=== PATIENT | female | born 1985 | race Caucasian/White ===

== ENCOUNTER → 2017-12-03 11:53 | Outpatient (CLI) | payer OTHER, SELFPAY ==
--- NOTE | 2017-12-03 11:56 | DI.RAD.S_ITS ---
PROCEDURE: XR ABDOMEN MIN 2V INDICATIONS: Abdominal pain LLQ and constipation/diarrhea TECHNIQUE: 2 views of the abdomen were acquired. COMPARISON: None. FINDINGS: Surgical changes and devices: None. Bowel: No pneumoperitoneum. The bowel gas pattern is normal except for mild colonic obstipation.. Soft tissues: No masses; visualized solid organ contours appear normal in size. No suspicious abdominal calcifications. Bones: No suspicious bony abnormalities. Note is made of mild convex rightward rotatory scoliosis. 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 Clonic obstipation. No intestinal obstruction or perforation is found. Dictated by: Andrew Andrade M.D. on 12/03/2017 at 13:24 Approved by: Andrew Andrade M.D. on 12/03/2017 at 13:25
[2017-12-03 12:59] LABS: Add Manual Diff / Slide Review NO; Eosinophils Percent Auto 1.7 % (2-4); Hematocrit 40.6 % (36-46); Hemoglobin 13.6 g/dL (12.0-16.0); Lymphocytes Percent Auto 30.9 % (25-40); Mean Corpuscular HGB Conc 33.4 % (30-36); Mean Corpuscular Hemoglobin 29.9 PG (26-34); Mean Corpuscular Volume 89.5 fL (80-100); Monocytes Percent Auto 7.3 % (3-14); Neutrophils Absolute Auto 3000 /uL (3000-5900); Neutrophils Percent Auto 59.1 % (50-75); Platelet Count 250 X10^3/uL (150-400); Red Blood Cell Count 4.53 X10^6/uL (4.0-5.2); Red Cell Distribution Width 13.8 % (11.6-14.8); White Blood Cell Count 5.1 X10^3/uL (4.5-11.0)
[2017-12-03 13:20] LABS: Bacteria Urine None Seen; RBC Urine None Seen (0-5/HPF); WBC Urine None Seen (0-5/HPF)
[2017-12-03 13:57] LABS: Appearance Urine UA CLOUDY; Bilirubin Urine UA NEGATIVE (NEGATIVE); Color Urine UA YELLOW; Glucose Urine UA NEGATIVE (Normal); Ketones Urine UA NEGATIVE (NEGATIVE); Leukocyte Esterase Urine UA NEGATIVE (NEGATIVE); Nitrite Urine UA NEGATIVE (Negative); Occult Blood Urine UA 1+ (Negative); Protein Urine UA NEGATIVE (Negative); Specific Gravity Urine UA 1.025 (1.000-1.035); Urobilinogen Urine UA 0.2 E.U./dL (0.2); pH Urine UA 5.5 (4.5-8.0)
[2017-12-03 14:04] LABS: Amorphous Sediment Urine 4+; Culture Indicated Urine Cult Not Indicated
== END ==
PROVIDERS: PCP Physician Assistant; Visit Provider Physician Assistant
DX: R11.10 Vomiting, unspecified (principal); R10.9 Unspecified abdominal pain; R10.32 Left lower quadrant pain
CPT/HCPCS: 36415; 74019; 81001; 85025

== ENCOUNTER → 2020-03-23 07:45 | Outpatient (CLI) | payer BC, SELFPAY ==
--- NOTE | 2020-03-23 07:50 | DI.US.S_ITS ---
PROCEDURE: US SOFT TISSUE HEAD AND NECK INDICATIONS: MASS RIGHT JAW TECHNIQUE: Real-time scanning was performed of the neck region of interest, with image documentation. COMPARISON: None. FINDINGS: There are multiple bilateral morphologically normal appearing lymph nodes, largest on the right measuring up to 8 mm and 7 mm on the left in maximal short axis. IMPRESSION: Multiple morphologically normal appearing bilateral lymph nodes, largest measuring up to 8 mm on the right. Recommend continued followup ultrasound as detailed below. Clinical correlation and management. Dictated by: Mauro PAYNE Interpreted: Zeenat Kincaid MD on 03/23/2020 at 9:02 Approved by: Zeenat Kincaid M.D. on 03/23/2020 at 10:54
== END ==
PROVIDERS: PCP Internal Medicine; Referring Provider Internal Medicine; Visit Provider Internal Medicine
DX: R22.0 Localized swelling, mass and lump, head (principal)
CPT/HCPCS: 76536

== ENCOUNTER → 2020-04-07 09:10 | Outpatient (CLI) | payer BC, SELFPAY ==
--- NOTE | 2020-04-07 09:49 | DI.CT.S_ITS ---
PROCEDURE: CT SOFT TISSUE NECK W CON INDICATIONS: Localized swelling, mass and lump, neck TECHNIQUE: After the administration of intravenous contrast, 3.0 mm axial sections acquired from the sella to the aortic arch. Additional oblique axial 3.0 mm sections acquired through the pharynx. 3 mm thick coronal and sagittal reformats were generated. For radiation dose reduction, the following was used: automated exposure control. COMPARISON: None. FINDINGS: Image quality: Excellent. Lymph nodes: No enlarged lymph nodes seen throughout the neck. Vessels: Visualized vasculature appears patent. Neck spaces: The oropharynx, nasopharynx, and pharynx demonstrate no mucosal lesions. The vocal cords, false vocal cords, pyriform sinuses, epiglottis, vallecula, and tongue base all appear normal. Extramucosal spaces appear unremarkable. Glands: The parotid and submandibular glands appear normal. Thyroid gland appears normal . Miscellaneous: Visualized brain and orbits appear normal. Lung apices appear clear. Superficial soft tissues appear normal. Bones: No suspicious bony lesions. Visualized sinuses and mastoids appear unremarkable. IMPRESSION: No area of soft tissue edema is identified, the parapharyngeal soft tissues show no sign of inflammation. No salivary gland enlargement, or adenopathy is seen. Source of current symptoms is not found. Dictated by: Andrew Andrade M.D. on 04/07/2020 at 11:54 Approved by: Andrew Andrade M.D. on 04/07/2020 at 11:55
== END ==
PROVIDERS: PCP Internal Medicine; Referring Provider Internal Medicine; Visit Provider Internal Medicine
DX: R22.1 Localized swelling, mass and lump, neck (principal)
CPT/HCPCS: 70491; Q9967

== ENCOUNTER 2021-10-02 19:33 | Emergency (ER) | payer BC, SELFPAY ==
[2021-10-02 19:42] VITALS: BP 131/65; PULSE 77; RESP 19; TEMP 36.7; O2SAT 99; BMI 21.1
[2021-10-02 20:10] LABS: Add Manual Diff / Slide Review NO; Basophils Absolute Auto 100 /uL (0-100); Basophils Percent Auto 1.1 % (0-2); Eosinophils Absolute Auto 200 /uL (0-450); Eosinophils Percent Auto 2.3 % (2-4); Hematocrit 35.8 % (36-46); Hemoglobin 12.3 g/dL (12.0-16.0); Lymphocytes Absolute Auto 2200 /uL (1100-4500); Lymphocytes Percent Auto 29.5 % (25-40); Mean Corpuscular HGB Conc 34.3 % (30-36); Mean Corpuscular Hemoglobin 30.1 PG (26-34); Mean Corpuscular Volume 87.7 fL (80-100); Monocytes Absolute Auto 400 /uL (0-900); Monocytes Percent Auto 6.1 % (3-14); Neutrophils Absolute Auto 4500 /uL (1500-7000); Platelet Count 249 X10^3/uL (150-400); Red Blood Cell Count 4.08 X10^6/uL (4.0-5.2); Red Cell Distribution Width 13.6 % (11.6-14.8); White Blood Cell Count 7.3 X10^3/uL (4.5-11.0)
[2021-10-02 20:16] LABS: Alanine Aminotransferase 14 IU/L (<35); Albumin 4.1 g/dL (3.5-5.0); Albumin Globulin Ratio 1.2 (1.0-2.8); Alkaline Phosphatase 36 U/L (38-126); Aspartate Aminotransferase 25 IU/L (14-36); Bilirubin Total 0.4 mg/dL (0.2-1.3); Blood Urea Nitrogen 17 mg/dL (7-17); Carbon Dioxide 28 mmol/L (22-32); Chloride 103 mmol/L (98-107); Estimated Glomerular Filt Rate > 60 mL/min (>60); Globulin 3.3 g/dL (1.7-4.1); Glucose 86 mg/dL (70-100); HEMOLYSIS < 15 (0-50); Lipase 157 U/L (23-300); Potassium 3.5 mmol/L (3.4-5.1); Sodium 136 mmol/L (137-145); Total Protein 7.4 g/dL (6.3-8.2)
--- NOTE | 2021-10-02 22:03 | ED_ITS ---
HPI - Abdominal Pain General Chief Complaint: Abdominal Pain Stated Complaint: Stomach ulcer complications Time Seen by Provider: 10/02/21 21:16 Source: patient Mode of arrival: Ambulatory History of Present Illness HPI narrative: 36-year-old female former smoker presents with her significant other and a chief complaint of worsening epigastric pain. She states that she is been battling this for many months and her primary care provider has been helping her treat what is thought to be a likely ulcer or even H pylori infection. She had been on Protonix daily and had recently done the triple antibiotic therapy for possible H pylori though test was negative. Her antibiotics and yesterday and she stopped taking Protonix as well and today presents with severe burning epigastric pain without radiation. Typically her burning was improved somewhat after eating but over the past 24 hours it has been significantly worse with eating. She is had no fever or chills. She is had nausea. She denies any chest pain, shortness of breath or cough. She denies any constipation or diarrhea. Had no recent change in her diet. Related Data Home Medications Medication Instructions Recorded Confirmed Digestive Enzymes See Rx Instructions .Route .COMPLEX 12/03/17 11/06/18 Probiotic See Rx Instructions .Route .COMPLEX 12/03/17 11/06/18 Previous Rx's Medication Instructions Recorded diclofenac sodium 1 % topical gel 2 gram topical QID PRN pain #100 05/06/18 grams meclizine 25 mg tablet 25 mg PO BID-TID PRN dizziness #30 11/06/18 tabs ondansetron 4 mg disintegrating 4 mg PO TID-QID PRN nausea and 10/02/21 tablet vomiting #10 tabs pantoprazole 40 mg tablet,delayed 40 mg PO DAILY #30 tabs 10/02/21 release (Protonix) Allergies Allergy/AdvReac Type Severity Reaction Status Date / Time metoclopramide Allergy Mild BAD Verified 10/02/21 19:46 [METOCLOPRAMIDE] REACTIONS metronidazole [From FLAGYL] Allergy Mild BAD Verified 10/02/21 19:46 REACTIONS Review of Systems Review of Systems Narrative: GENERAL: Denies chills, fatigue, malaise, fever, sweats. HEENT: Denies sinus pain, ear pain, sore throat, difficulty swallowing, dizziness. RESPIRATORY: Denies dyspnea, cough, wheezing, hemoptysis, sputum. CARDIOVASCULAR: Denies chest pain, palpitations, orthopnea, edema, GASTROINTESTINAL: See HPI : Denies dysuria, frequency, incontinence, hematuria, urinary retention. MUSCULOSKELETAL: denies weakness, joint pain, or bony pain SKIN: Denies rash, skin lesions, or other NEUROLOGIC: Denies weakness, headache, numbness, change in speech, confusion, seizures, incoordination. PSYCHIATRIC: No concerning psychosocial issues. 12 point review of systems is negative except for those stated above Patient History Social History Smoking Status: Former smoker Tobacco: How many years used: 10 second hand exposure: No alcohol intake: current (rarely.) substance use type: does not use Smoking Status: Former smoker tobacco type: vaping alcohol intake frequency: 0-2 drinks per day Substance Use Type: does not use Exam Narrative Exam Narrative: GENERAL: [36] year old patient appears stated age. Well-developed patient, in mild distress. HEAD: Atraumatic. Normocephalic. EYES: Pupils equal round and reactive. Extraocular motions intact. No scleral icterus. No injection or drainage. ENT: Nose without bleeding, purulent drainage. Throat without erythema, tonsillar hypertrophy or exudate. Airway patent. NECK: Trachea midline. Non tender CARDIOVASCULAR: Regular rate and rhythm without murmurs, gallops, or rubs. RESPIRATORY: Clear to auscultation. Breath sounds equal bilaterally. No wheezes, rales, or rhonchi. GASTROINTESTINAL: Abdomen soft, epigastric tenderness to palpation, nondistended. EXTREMITIES: No edema or joint tenderness. BACK: Nontender without deformity or crepitance. No flank tenderness. NEURO: AOx3. SKIN: No rash or erythema of visible areas Initial Vital Signs Initial Vital Signs: Vital Signs Temperature 98.1 F 10/02/21 19:42 Pulse Rate 77 10/02/21 19:42 Respiratory Rate 19 10/02/21 19:42 Blood Pressure 131/65 10/02/21 19:42 Pulse Oximetry 99 10/02/21 19:42 Oxygen Delivery Method 10/02/21 19:42 Course Orders Ordered: Discontinued Medications Hydromorphone HCl (Hydromorphone 0.5 Mg Inj) 0.5 mg IV NOW ONE Stop: 10/02/21 22:12 Last Admin: 10/02/21 22:29 Dose: 0.5 mg Documented By: JONNATHAN Sodium Chloride (Normal Saline 0.9%) 1,000 mls @ 1,000 mls/hr IV BOLUS ONE Stop: 10/02/21 23:10 Last Infusion: 10/02/21 23:46 Dose: 0 mls/hr Documented By: Admin: 10/02/21 22:28 Dose: 1,000 mls/hr Documented By: JONNATHAN Ondansetron HCl (Ondansetron 4 Mg/2 Ml Inj) 4 mg IV NOW ONE Stop: 10/02/21 22:12 Last Admin: 10/02/21 22:29 Dose: 4 mg Documented By: JONNATHAN Ondansetron HCl (Ondansetron 4 Mg Odt Prepack) 1 bottle MISC SEEINSTR ONE Stop: 10/02/21 23:27 Last Admin: 10/02/21 23:42 Dose: 1 bottle Documented By: JONNATHAN Pantoprazole Sodium (Pantoprazole 40 Mg Vial) 40 mg IV NOW ONE Stop: 10/02/21 22:12 Last Admin: 10/02/21 22:29 Dose: 40 mg Documented By: JONNATHAN Vital Signs Vital signs: Vital Signs - 8 hr 10/02/21 19:42 Temperature 98.1 F Pulse Rate 77 Respiratory Rate 19 Blood Pressure 131/65 Pulse Oximetry 99 Oxygen Delivery Method Room Air MDM - Abdominal Pain Lab Data Result diagrams: 10/02/21 19:50 10/02/21 19:50 Labs: Lab Results 10/02/21 10/02/21 Range/Units 19:50 19:50 WBC 7.3 (4.5-11.0) X10^3/uL RBC 4.08 (4.0-5.2) X10^6/uL Hgb 12.3 (12.0-16.0) g/dL Hct 35.8 L (36-46) % MCV 87.7 (80-100) fL MCH 30.1 (26-34) PG MCHC 34.3 (30-36) % RDW 13.6 (11.6-14.8) % Plt Count 249 (150-400) X10^3/uL Neut % (Auto) 61.0 (50-75) % Lymph % (Auto) 29.5 (25-40) % [place]orne % (Auto) 6.1 (3-14) % Eos % (Auto) 2.3 (2-4) % Baso % (Auto) 1.1 (0-2) % Neut # (Auto) 4500 (5897-3817) /uL Lymph # (Auto) 2200 (4641-8017) /uL [place]orne # (Auto) 400 (0-900) /uL Eos # (Auto) 200 (0-450) /uL Baso # (Auto) 100 (0-100) /uL Sodium 136 L (137-145) mmol/L Potassium 3.5 (3.4-5.1) mmol/L Chloride 103 (98-107) mmol/L Carbon Dioxide 28 (22-32) mmol/L BUN 17 (7-17) mg/dL Creatinine 0.74 (0.52-1.04) mg/dL Estimated GFR > 60 (>60) mL/min BUN/Creatinine Ratio 23.0 H (6-22) Glucose 86 (70-100) mg/dL Calcium 9.0 (8.4-10.2) mg/dL Total Bilirubin 0.4 (0.2-1.3) mg/dL AST 25 (14-36) IU/L ALT 14 (<35) IU/L Alkaline Phosphatase 36 L (38-126) U/L Total Protein 7.4 (6.3-8.2) g/dL Albumin 4.1 (3.5-5.0) g/dL Globulin 3.3 (1.7-4.1) g/dL Albumin/Globulin Ratio 1.2 (1.0-2.8) Lipase 157 (23-300) U/L Imaging Data CT scan - abdomen/pelvis: Radiologist's Impression: Close Abdomen/Pelvis CT (Signed) Andrew Andrade - 10/02/21 Launch?[address] [address] [address] Scan Report Signed Patient: Alondra Mayes MR#: [id number] : 1985 Acct:[id number] Age/Sex: 36 / F Date of Service: 10/02/21 Loc: ED Accession Number: [id number] ?? Procedure: CT abdomen pelvis w con Ordering Provider: Miguelangel Goins D.O. PROCEDURE:? CT ABDOMEN PELVIS W CON ? INDICATIONS:? severe abdominal pain ? TECHNIQUE:? After the administration of intravenous contrast, axial sections acquired from the lung bases to the pubic symphysis.? Coronal and sagittal reformats were performed.? For radiation dose reduction, the following was used:? automated exposure control, adjustment of mA and/or kV according to patient size.? ? COMPARISON:? None. ? FINDINGS:? Image quality:? Excellent.? ? Lung bases:? Unremarkable. Heart:? No significant findings. ? ABDOMEN: Liver:? Unremarkable.? ? Gallbladder:? Previously resected? ? Biliary ducts:? Unremarkable.? ? Pancreas:? Unremarkable.? ? Spleen:? Unremarkable.? ? Adrenal Glands:? Unremarkable.? ? Kidneys and Ureters:? Unremarkable.? ? ? Stomach and Bowel:? Stomach, small bowel loops, and colon are unremarkable.? Peritoneum:? No abnormal intraperitoneal fluid.? No free air.? ? Ventral Wall: ? No hernias.? Abdominal Nodes:? No retroperitoneal or mesenteric adenopathy by size criteria.? Vessels:? Aorta and inferior vena cava are normal in size.? ? PELVIS: Pelvic Organs:? Unremarkable.? ? Bladder:? Unremarkable.? ? Pelvic Nodes: No enlarged lymph nodes.? Miscellaneous: No hernias are seen. ? ? ? Bones:? Unremarkable.? IMPRESSION:? A source of abdominal pain is not identified.? There is no sign of intestinal obstruction or perforation.? No free fluid within the peritoneal space is seen. ? ? Dictated by: Andrew Andrade M.D. on 10/02/2021 at 23:03 ? ? Approved by: Andrew Andrade M.D. on 10/02/2021 at 23:04 ? MDM Narrative Medical decision making narrative: Multiple etiologies for patient's symptoms considered include, but not limited to: [Gallbladder disease versus pancreatitis versus bowel obstruction versus ulcer versus gastritis versus other Patient's symptoms improved over duration of stay with above-stated therapies. History, physical exam, labs, imaging, and response to therapies have been reassuring. Findings and discharge diagnosis discussed with patient/family followed by verb alization of understanding Return precautions discussed with patient/family whom verbalize understanding. Pain has been well controlled and patient is tolerating oral hydration. Discharge Plan Departure Patient Disposition: Home Clinical Impression: Epigastric abdominal pain Instructions: DI for Epigastric Pain Activity Restrictions/Additional Instructions: *You have been diagnosed with [acute on chronic epigastric abdominal pain] * As we discussed your history and physical exam as well as labs and imaging are very reassuring. There is no evidence of any severe diagnoses that would requi re a specific or immediate intervention. *What to do: *Please continue to take your regular medications as directed. [x ] New medication prescriptions sent to your pharmacy: [[facility] in [place]] *Please follow up with your primary care provider in 2-3 days, call for an appointment. Let them know you were seen in the Emergency Department and that we ask that you be seen in follow up. We will electronically transmit a record of today's note if your PCP is in our system * as we discussed it seems most reasonable to pursue referral to either General surgery or Gastroenterology as endoscopy seems to be the next reasonable step to obtaining an official diagnosis *Please consider a clear liquid diet for the next 24-48 hours and then slowly advance to regular as tolerated. Also, try to avoid alcohol, nicotine, caffeine, spicy, acidic or fatty foods as this may worsen your symptoms *Return to Emergency Department if you should have any new, worsening or concern ing symptoms, such as [fever greater than 101 F, shaking chills, worsening pain, persistent vomiting or other bothersome symptoms] Prescriptions: New pantoprazole [Protonix] 40 mg tablet,delayed release (DR/EC) 40 mg PO DAILY Qty: 30 0RF ondansetron 4 mg tablet,disintegrating 4 mg PO TID-QID PRN (Reason: nausea and vomiting) Qty: 10 0RF No Action Probiotic See Rx Instructions .ROUTE .COMPLEX Label Comments: 1 CAP PO TWICE A WEEK Rx Instructions: 1 CAP PO TWICE A WEEK Digestive Enzymes See Rx Instructions .ROUTE .COMPLEX Label Comments: 1 CAP PO PRN Rx Instructions: 1 CAP PO PRN diclofenac sodium 1 % gel 2 gram TOP QID PRN (Reason: pain) Qty: 100 3RF Rx Instructions: apply to hand at thumb up to 4 times a day meclizine 25 mg tablet 25 mg PO BID-TID PRN (Reason: dizziness) Qty: 30 0RF Referrals: Alexandra Byrd MD [Primary Care Provider] - Jericho Delacruz MD [Physician] - Visit Report Forms: Patient Portal/API
--- NOTE | 2021-10-02 22:11 | DI.CT.S_ITS ---
PROCEDURE: CT ABDOMEN PELVIS W CON INDICATIONS: severe abdominal pain TECHNIQUE: After the administration of intravenous contrast, axial sections acquired from the lung bases to the pubic symphysis. Coronal and sagittal reformats were performed. For radiation dose reduction, the following was used: automated exposure control, adjustment of mA and/or kV according to patient size. COMPARISON: None. FINDINGS: Image quality: Excellent. Lung bases: Unremarkable. Heart: No significant findings. ABDOMEN: Liver: Unremarkable. Gallbladder: Previously resected Biliary ducts: Unremarkable. Pancreas: Unremarkable. Spleen: Unremarkable. Adrenal Glands: Unremarkable. Kidneys and Ureters: Unremarkable. Stomach and Bowel: Stomach, small bowel loops, and colon are unremarkable. Peritoneum: No abnormal intraperitoneal fluid. No free air. Ventral Wall: No hernias. Abdominal Nodes: No retroperitoneal or mesenteric adenopathy by size criteria. Vessels: Aorta and inferior vena cava are normal in size. PELVIS: Pelvic Organs: Unremarkable. Bladder: Unremarkable. Pelvic Nodes: No enlarged lymph nodes. Miscellaneous: No hernias are seen. Bones: Unremarkable. IMPRESSION: A source of abdominal pain is not identified. There is no sign of intestinal obstruction or perforation. No free fluid within the peritoneal space is seen. Dictated by: Andrew Andrade M.D. on 10/02/2021 at 23:03 Approved by: Andrew Andrade M.D. on 10/02/2021 at 23:04
[2021-10-02] MEDS: SODIUM CHLORIDE 0.9% 1,000 ML 1000 ML IV (22:28)
[2021-10-02] MEDS: PANTOPRAZOLE 40 MG VIAL IV (22:29)
[2021-10-02] MEDS: ONDANSETRON 4 MG/2 ML INJ IV (22:29)
[2021-10-02] MEDS: HYDROMORPHONE 0.5 MG INJ IV (22:29)
[2021-10-02 23:35] VITALS: BP 114/70; PULSE 90; RESP 18; O2SAT 99
[2021-10-02] MEDS: ONDANSETRON 4 MG ODT PREPACK 1 BOTTLE MISC (23:42)
== END 2021-10-03 00:35 | disposition home or self-care (01) ==
PROVIDERS: Emergency Provider Emergency Medicine; PCP Internal Medicine
DX: R10.13 Epigastric pain (principal)
CPT/HCPCS: 74177; 80053; 83690; 85025; 96374; 96375; 99284; C9113; J1170; J2405; Q9967

== ENCOUNTER → 2021-10-24 11:59 | Outpatient (CLI) | payer OTHER, SELFPAY ==
[2021-10-24 14:41] LABS: COVID19 -Nasal RAPID Negative (Negative)
== END ==
PROVIDERS: Visit Provider Surgery
DX: Z01.812 Encounter for preprocedural laboratory examination (principal); Z20.822 Contact with and (suspected) exposure to COVID-19
CPT/HCPCS: 87635; C9803

== ENCOUNTER 2021-10-25 13:25 | Day surgery (SDC) | payer OTHER, SELFPAY ==
[2021-10-25] VITALS (8 sets, daily range): BP systolic 109–120; BP diastolic 72–85; PULSE 64–79; RESP 11–18; TEMP 36.6–37.4; O2SAT 98–100; BMI 21.7
--- NOTE | 2021-10-25 | PATH_ITS ---
[facility] Accession Number: [id number] . 01 Material submitted: . PART A: stomach - STOMACH BIOPSY PART B: esophagus, E-G Junction - GE JUNCTION BIOPSY . 01 Clinical history: . EGD PEPTIC ULCER, SITE UNSPECIFIED . 01 Diagnosis: A. Stomach, Biopsy: Antral mucosa with mild chronic gastritis. No evidence of Helicobacter on H/E stain. Negative for intestinal metaplasia. Negative for dysplasia and malignancy. . B. Gastroesophageal Junction, Biopsy: Squamous epithelium with no diagnostic abnormality. Intraepithelial eosinophils are not increased. Negative for dysplasia and malignancy. MRV 10/27/2021 0927 Local . 01 Electronically signed: . Kasia Whitman MD, Pathologist NPI- [id number] . 01 Gross description: . Part A: STOMACH BIOPSY: Received in formalin are 2 fragment(s) of berkowitz, soft tissue measuring 0.5 x 0.3 x 0.1 cm to 0.2 x 0.2 x 0.1 cm submitted entirely in 1 cassette(s) Part B: GE JUNCTION BIOPSY: Received in formalin is 1 fragment(s) of berkowitz, soft tissue measuring 0.3 x 0.2 x 0.1 cm submitted entirely in 1 cassette(s) /CPE 10/26/2021 0908 Local . 01 Pathologist provided ICD-10: K27.9 . 01 CPT . 290069, 423132 Performed at: 01 [facility] [address] [place] [address], [place], [place] [id number] MD Anton Irwin MD Phone: [phone]
[2021-10-25] MEDS: LACTATED RINGERS 1,000 ML 200 ML IV (13:50)
--- NOTE | 2021-10-25 15:09 | PM.PREOP ---
Pre-operative Note Interval Note History & Physical reviewed/Exam performed by Physician: Yes Changes to H&P: No
[2021-10-25] MEDS: LIDOCAINE 4% SOLN 50 ML 20 ML TOP (15:20)
--- NOTE | 2021-10-25 15:20 | PM.OP.EGD ---
Operative Date/Time/Diagnoses Date of procedure: 10/25/21 Time of procedure: 15:20 Pre-op diagnosis: Epigastric pain Procedure & Clinicians Study performed: Esophagoduodenoscopy Same procedure as scheduled: Yes Indications: Chronic epigastric pain Surgeon: Augustine Lance Procedure Notes Procedure in detail: Patient placed in left lateral decubitus position. Time out was performed. Procedural sedation was administered with Versed and Fentanyl. A bite block was placed. the scope was inserted into the mouth and advanced through the esophagus and into the stomach. The stomach was notable for mild diffuse gastritis. No distinct ulcer, no active bleeding. The pylorus was intubated and the duodenum was normal to the 2nd portion. The scope was retroflexed within the stomach and there was a small hiatal hernia. The scope was withdrawn into the esophagus the Z line was seen at 35 cm from the incisions. There was mild esophagitis and a biopsy was performed of the GE junction with forceps.. Stomach was desufflated and scope removed. Patient tolerated procedure well. Specimen(s): other (Gastric, GE junction) Complications: none Impression: Gastritis Post-procedure Plan for aftercare: Continue Protonix 40 mg daily will notify with biopsy results Disposition: same day surgery
[2021-10-25] MEDS: fentaNYL 100 MCG/2 ML INJ 150 MCG IV (15:30)
[2021-10-25] MEDS: MIDAZOLAM 5 MG/5 ML VIAL 8 MG IV (15:30)
[2021-10-25] MEDS: FAMOTIDINE 20 MG/2 ML VIAL IV (16:02)
--- NOTE | 2021-10-25 16:25 | SUR.PHASEII ---
Tea provided, patient swallowing without difficulty. Call light within reach. Joseph updated.
--- NOTE | 2021-10-25 19:00 | SUR.PHASEII ---
d/c instuctions discussed, by marifer Bermudez ready to go, left in stable condition.
== END 2021-10-25 17:00 | disposition home or self-care (01) ==
PROVIDERS: Referring Provider Surgery; Visit Provider Surgery
PROC: 0DJ08ZZ Inspection of Upper Intestinal Tract, Via Natural or Artificial Opening Endoscopic (ICD-10-PCS; CPT 43235; principal; 2021-10-25 15:15)
DX: K20.90 Esophagitis, unspecified without bleeding (principal); K44.9 Diaphragmatic hernia without obstruction or gangrene; K29.50 Unspecified chronic gastritis without bleeding
CPT/HCPCS: 43239; J2250; J3010

== ENCOUNTER → 2021-11-14 13:14 | Outpatient (CLI) | payer OTHER, SELFPAY ==
[2021-11-14 15:05] LABS: Free T3, Triiodothyronine Free 3.41 pg/mL (2.77-5.27)
[2021-11-14 15:19] LABS: Thyroid Stimulating Hormone 0.818 uIU/mL (0.47-4.68)
== END ==
PROVIDERS: Referring Provider Naturopath; Visit Provider Naturopath
DX: R53.83 Other fatigue (principal); R63.4 Abnormal weight loss
CPT/HCPCS: 36415; 84443; 84481

== ENCOUNTER 2022-10-27 08:26 | Emergency (ER) | payer OTHER, SELFPAY ==
--- NOTE | 2022-10-27 08:30 | DI.RAD.S_ITS ---
PROCEDURE: XR CHEST 2V INDICATIONS: chest pain TECHNIQUE: 2 views of the chest were acquired. COMPARISON: [facility], , CHEST 2 VIEW, 01/18/2015, 12:13. FINDINGS: Surgical changes and devices: None. Lungs and pleura: Lungs are clear. No pleural effusions or pneumothorax. Mediastinum: Mediastinal contours are normal. Heart size is normal. Bones and chest wall: No suspicious bony abnormalities. Soft tissues appear unremarkable. IMPRESSION: No acute cardiopulmonary abnormality. Dictated by: Po Kaur M.D. on 10/27/2022 at 8:49 Approved by: Po Kaur M.D. on 10/27/2022 at 8:51
[2022-10-27 08:33] VITALS: BP 116/69; PULSE 77; RESP 12; TEMP 36.9; O2SAT 100; BMI 22.0
--- NOTE | 2022-10-27 08:48 | ED.CHESTPAIN ---
HPI - Chest Pain General Chief Complaint: Chest Pain Stated Complaint: SOB, Chest Pain T-3 Time Seen by Provider: 10/27/22 08:29 Source: patient Mode of arrival: Ambulatory Limitations: no limitations History of Present Illness HPI narrative: 37-year-old female former smoker without significant medical history presents with a chief complaint of shortness of breath and chest pain over the course of the week. She was initially seen and evaluated at the walk-in clinic and after discussion and history and physical exam she was sent here. She states that over the previous couple of days she had an intermittent chest pressure that was often described as sharp that seemed to be without obvious provocation or palliation. It would come and go at will over the course of the day, no radiation associated. No ongoing runny nose, fever or chills. No recent travel, trauma or injury. No lower extremity pain, swelling or redness. No history of blood clot or cancer, no use of control. Last evening it became much more intense and was notably worse when she laid flat. This was associated with some shortness of breath, she is admittedly much better now and has no shortness of breath. She denies exertional symptoms, exercise intolerance or other cardiac equivalent such as dizziness, weakness or lightheadedness, no unexplained diaphoresis. Related Data Home Medications Medication Instructions Recorded Confirmed Digestive Enzymes See Rx Instructions .Route .COMPLEX 12/03/17 10/27/22 Probiotic See Rx Instructions .Route .COMPLEX 12/03/17 10/27/22 Previous Rx's Medication Instructions Recorded meclizine 25 mg tablet 25 mg PO BID-TID PRN dizziness #30 11/06/18 tabs pantoprazole 40 mg tablet,delayed 40 mg PO DAILY #60 tabs 10/25/21 release (Protonix) Allergies Allergy/AdvReac Type Severity Reaction Status Date / Time metoclopramide Allergy Mild BAD Verified 10/27/22 07:42 [METOCLOPRAMIDE] REACTIONS metronidazole [From FLAGYL] Allergy Mild BAD Verified 10/27/22 07:42 REACTIONS ondansetron AdvReac Mild Nausea Verified 10/27/22 07:42 Review of Systems Review of Systems Narrative: GENERAL: Denies chills, fatigue, malaise, fever, sweats. HEENT: Denies sinus pain, ear pain, sore throat, difficulty swallowing, dizziness. RESPIRATORY: See HPI CARDIOVASCULAR: see HPI GASTROINTESTINAL: Denies nausea, vomiting, abdominal pain, diarrhea, constipation, melena. : Denies dysuria, frequency, incontinence, hematuria, urinary retention. MUSCULOSKELETAL: denies weakness, joint pain, or bony pain SKIN: Denies rash, skin lesions, or other NEUROLOGIC: Denies weakness, headache, numbness, change in speech, confusion, seizures, incoordination. PSYCHIATRIC: No concerning psychosocial issues. 12 point review of systems is negative except for those stated above Patient History Social History household members: spouse Smoking Status: Former smoker Tobacco: How many years used: 10 second hand exposure: No alcohol intake: current substance use type: does not use Smoking Status: Former smoker tobacco type: vaping alcohol intake frequency: a few times a month Substance Use Type: does not use Exam Narrative Exam Narrative: GENERAL: [37] year old patient appears stated age. Well-developed patient, in mild distress. HEAD: Atraumatic. Normocephalic. EYES: Pupils equal round and reactive. Extraocular motions intact. No scleral icterus. No injection or drainage. ENT: Nose without bleeding, purulent drainage. Throat without erythema, tonsillar hypertrophy or exudate. Airway patent. NECK: Trachea midline. Non tender CARDIOVASCULAR: Regular rate and rhythm without murmurs, gallops, or rubs. RESPIRATORY: Clear to auscultation. Breath sounds equal bilaterally. No wheezes, rales, or rhonchi. GASTROINTESTINAL: Abdomen soft, non-tender, nondistended. EXTREMITIES: No edema or joint tenderness. BACK: Nontender without deformity or crepitance. No flank tenderness. NEURO: AOx3. SKIN: No rash or erythema of visible areas Initial Vital Signs Initial Vital Signs: Vital Signs Temperature 98.5 F 10/27/22 08:33 Pulse Rate 77 10/27/22 08:33 Respiratory Rate 12 10/27/22 08:33 Blood Pressure 116/69 10/27/22 08:33 Pulse Oximetry 100 10/27/22 08:33 Oxygen Delivery Method Room Air 10/27/22 08:33 Scores HEART Score Heart Score history: Slightly Suspicious Heart Score EKG: Normal Heart Score Age: < 45 years old Heart Score risk factors: No known risk factors Heart Score troponin: < or = to normal limit Heart Score Total: 0 Course Orders Ordered: ED Orders 10/27/22 08:30 Chest [XR chest 2V] Stat 10/27/22 08:52 C-Reactive Protein Quant Stat Complete Blood Count AUTO DIFF Stat Comprehensive Metabolic Panel Stat D Dimer Stat Erythrocyte Sedimentation Rate Stat Lipase Stat NT-proBNP (BNP-Adult 18+) Stat Troponin & CK Cardiac Panel Stat Vital Signs Vital signs: Vital Signs - 8 hr 10/27/22 08:33 10/27/22 08:58 10/27/22 08:59 Temperature 98.5 F Pulse Rate 77 87 Respiratory Rate 12 Blood Pressure 116/69 149/84 H Pulse Oximetry 100 100 Oxygen Delivery Method Room Air 10/27/22 08:59 10/27/22 09:00 10/27/22 09:00 Temperature Pulse Rate 82 78 Respiratory Rate Blood Pressure 138/82 Pulse Oximetry 100 100 Oxygen Delivery Method 10/27/22 09:30 10/27/22 09:30 10/27/22 10:08 Temperature Pulse Rate 66 70 Respiratory Rate 19 14 Blood Pressure 118/70 108/69 Pulse Oximetry 100 100 Oxygen Delivery Method Room Air MDM - Chest Pain Lab Data 10/27/22 08:52 10/27/22 08:52 Labs: Lab Results 10/27/22 10/27/22 10/27/22 Range/Units 08:52 08:52 08:52 WBC 4.6 (4.5-11.0) X10^3/uL RBC 4.12 (4.0-5.2) X10^6/uL Hgb 12.4 (12.0-16.0) g/dL Hct 36.5 (36-46) % MCV 88.6 (80-100) fL MCH 30.2 (26-34) PG MCHC 34.1 (30-36) % RDW 13.0 (11.6-14.8) % Plt Count 257 (150-400) X10^3/uL Neut % (Auto) 60.2 (50-75) % Lymph % (Auto) 31.0 (25-40) % [place] % (Auto) 4.9 (3-14) % Eos % (Auto) 2.8 (2-4) % Baso % (Auto) 1.1 (0-2) % Neut # (Auto) 2700 (2500-4295) /uL Lymph # (Auto) 1400 (4201-5122) /uL [place] # (Auto) 200 (0-900) /uL Eos # (Auto) 100 (0-450) /uL Baso # (Auto) 100 (0-100) /uL ESR 8 (0-20) MM/HR D-Dimer 319 (<500) ng/ml Sodium 135 L (137-145) mmol/L Potassium 3.7 (3.4-5.1) mmol/L Chloride 104 (98-107) mmol/L Carbon Dioxide 25 (22-32) mmol/L BUN 18 H (7-17) mg/dL Creatinine 0.69 (0.52-1.04) mg/dL Estimated GFR > 60 (>60) mL/min BUN/Creatinine Ratio 26.1 H (6-22) Glucose 101 H (70-100) mg/dL Calcium 9.1 (8.4-10.2) mg/dL Total Bilirubin 0.3 (0.2-1.3) mg/dL AST 22 (14-36) IU/L ALT 16 (<35) IU/L Alkaline Phosphatase 32 L (38-126) U/L Total Creatine Kinase 69 (30-135) U/L Troponin I < 0.012 (0.01-0.034) ng/mL C-Reactive Protein < 0.5 (<1.0) mg/dL NT-Pro-B Natriuret Pep < 20 (<125) pg/mL Total Protein 7.4 (6.3-8.2) g/dL Albumin 4.2 (3.5-5.0) g/dL Globulin 3.2 (1.7-4.1) g/dL Albumin/Globulin Ratio 1.3 (1.0-2.8) Lipase 134 (23-300) U/L MDM Narrative Medical decision making narrative: CC: 37-year-old female with chest pain and shortness of breath Complicating co-morbidities: Former smoker Data collected from: Patient Medical records reviewed: Prior notes reviewed in our EMR Differential considered, but not limited to: Respiratory infection such as viral versus pneumonia versus cardiac ischemia versus pulmonary embolism versus pericarditis versus other Exam documented above, pertinent findings include: Lab Test results independently reviewed as above. Pertinent findings: Independently reviewed EKG as above Imaging studies independently reviewed: CXR without acute findings Scores Used: HEART Discussion:37-year-old female with chest pain off and on for the past few days with low risk features, cardiac ischemia and other diagnoses considered as noted above. Cardiac disease thought unlikely given lack of risk factors, lack of classic findings, low heart score, nonischemic EKG and negative troponin. No exertional symptoms, no exercise intolerance. Pulmonary embolism considered but Dimer below cutoff. myocarditis and pericarditis considered, troponin negative, inflammatory markers. Disposition: see below, along with detailed discharge instructions that have been reviewed with patient as well as indications for ED re-evaluation and additional outpatient follow up Discharge Plan Departure Patient Disposition: Home Clinical Impression: Atypical chest pain Instructions: DI for Atypical Chest Pain Activity Restrictions/Additional Instructions: *You have been diagnosed with [ atypical chest pain. As we discussed your history and physical exam as well as labs, EKG and imaging are reassuring and there is no evidence of heart attack, blood clot, significant pericarditis or other diagnosis that requires a specific intervention] *What to do: *Please continue to take your regular medications as directed. [ ] New medication prescriptions sent to your pharmacy: [ ] [ ] New medication written as a paper prescription [ ] No new medications given *Please follow up with your primary care provider in 2-3 days, call for an appointment. Let them know you were seen in the Emergency Department and that we ask that you be seen in follow up. We will electronically transmit a record of today's note if your PCP is in our system *If you do not have a primary care provider please contact the [facility] Resource line at [phone]. They will ask some questions about your medical history and help get you set up with a doctor in the community. *Return to Emergency Department if you should have any new, worsening or concerning symptoms, such as [fever greater than 101 F, shaking chills, worsening pain, persistent vomiting or other bothersome symptoms] Prescriptions: No Action Probiotic See Rx Instructions .ROUTE .COMPLEX Patient Comments: 1 CAP PO TWICE A WEEK Rx Instructions: 1 CAP PO TWICE A WEEK Digestive Enzymes See Rx Instructions .ROUTE .COMPLEX Patient Comments: 1 CAP PO PRN Rx Instructions: 1 CAP PO PRN meclizine 25 mg tablet 25 mg PO BID-TID PRN (Reason: dizziness) Qty: 30 0RF pantoprazole [Protonix] 40 mg tablet,delayed release (DR/EC) 40 mg PO DAILY Qty: 60 0RF Referrals: Tiffany Cordero ND [Primary Care Provider] - Stand Alone Forms: Patient Portal/API
[2022-10-27 08:58] VITALS: PULSE 87; O2SAT 100
[2022-10-27 08:59] VITALS: BP 149/84; PULSE 82; O2SAT 100
[2022-10-27 09:00] VITALS: BP 138/82; PULSE 78; O2SAT 100
[2022-10-27 09:06] LABS: Add Manual Diff / Slide Review NO; Basophils Absolute Auto 100 /uL (0-100); Basophils Percent Auto 1.1 % (0-2); Eosinophils Absolute Auto 100 /uL (0-450); Eosinophils Percent Auto 2.8 % (2-4); Hematocrit 36.5 % (36-46); Hemoglobin 12.4 g/dL (12.0-16.0); Lymphocytes Absolute Auto 1400 /uL (1100-4500); Mean Corpuscular HGB Conc 34.1 % (30-36); Mean Corpuscular Hemoglobin 30.2 PG (26-34); Mean Corpuscular Volume 88.6 fL (80-100); Monocytes Absolute Auto 200 /uL (0-900); Monocytes Percent Auto 4.9 % (3-14); Neutrophils Absolute Auto 2700 /uL (1500-7000); Neutrophils Percent Auto 60.2 % (50-75); Platelet Count 257 X10^3/uL (150-400); Red Blood Cell Count 4.12 X10^6/uL (4.0-5.2); White Blood Cell Count 4.6 X10^3/uL (4.5-11.0)
[2022-10-27 09:19] LABS: D Dimer 319 ng/ml (<500)
[2022-10-27 09:20] LABS: Alanine Aminotransferase 16 IU/L (<35); Albumin 4.2 g/dL (3.5-5.0); Albumin Globulin Ratio 1.3 (1.0-2.8); Alkaline Phosphatase 32 U/L (38-126); Aspartate Aminotransferase 22 IU/L (14-36); BUN Creatinine Ratio 26.1 (6-22); Bilirubin Total 0.3 mg/dL (0.2-1.3); Blood Urea Nitrogen 18 mg/dL (7-17); C-Reactive Protein Quant < 0.5 mg/dL (<1.0); Calcium 9.1 mg/dL (8.4-10.2); Carbon Dioxide 25 mmol/L (22-32); Chloride 104 mmol/L (98-107); Creatine Kinase 69 U/L (30-135); Estimated Glomerular Filt Rate > 60 mL/min (>60); Globulin 3.2 g/dL (1.7-4.1); Glucose 101 mg/dL (70-100); HEMOLYSIS < 15 (0-50); Lipase 134 U/L (23-300); Potassium 3.7 mmol/L (3.4-5.1); Sodium 135 mmol/L (137-145); Total Protein 7.4 g/dL (6.3-8.2)
[2022-10-27 09:27] LABS: Erythrocyte Sedimentation Rate 8 MM/HR (0-20)
[2022-10-27 09:29] LABS: NT-proBNP (BNP-Adult 18+) < 20 pg/mL (<125); Troponin I < 0.012 ng/mL (0.01-0.034)
[2022-10-27 09:30] VITALS: BP 118/70; PULSE 66; RESP 19; O2SAT 100
--- NOTE | 2022-10-27 10:00 | PC.NURSE ---
patient in room resting. She was asked if she needed anything and she said no. Her call light was in reach, rails were up.
[2022-10-27 10:08] VITALS: BP 108/69; PULSE 70; RESP 14; O2SAT 100
== END 2022-10-27 10:11 | disposition home or self-care (01) ==
PROVIDERS: Emergency Provider Emergency Medicine; PCP Naturopath
DX: R07.89 Other chest pain (principal)
CPT/HCPCS: 36415; 71046; 80053; 82550; 83690; 83880; 84484; 85025; 85379; 85651; 86140; 93005; 99284

== ENCOUNTER → 2023-01-28 13:02 | Outpatient (CLI) | payer OTHER, SELFPAY ==
--- NOTE | 2023-01-28 13:08 | DI.RAD.S_ITS ---
PROCEDURE: XR CHEST 2V INDICATIONS: Chest discomfort TECHNIQUE: 2 views of the chest were acquired. COMPARISON: [facility], , XR CHEST 2V, 10/27/2022, 8:40. [facility], , CHEST 2 VIEW, 01/18/2015, 12:13. FINDINGS: Surgical changes and devices: None. Lungs and pleura: No consolidation. No pleural effusions. Mediastinum: Normal heart size Bones and chest wall: Unremarkable IMPRESSION: No acute radiographic abnormality. Dictated by: William Quinn M.D. on 01/28/2023 at 13:24 Approved by: William Quinn M.D. on 01/28/2023 at 13:25
== END ==
PROVIDERS: PCP Naturopath; Referring Provider Nurse Practitioner Family; Visit Provider Nurse Practitioner Family
DX: R07.89 Other chest pain (principal)
CPT/HCPCS: 71046

== ENCOUNTER → 2023-03-08 15:34 | Outpatient (CLI) | payer OTHER, SELFPAY ==
[2023-03-08 18:06] LABS: Vitamin B12 479 pg/mL (239-931)
== END ==
PROVIDERS: PCP Family Medicine; Referring Provider Family Medicine; Visit Provider Family Medicine
DX: H93.13 Tinnitus, bilateral (principal); R53.83 Other fatigue; R10.13 Epigastric pain
CPT/HCPCS: 36415; 82607

== ENCOUNTER → 2023-03-13 09:05 | Outpatient (CLI) | payer OTHER, SELFPAY ==
--- NOTE | 2023-03-13 09:07 | DI.MG.S_ITS ---
BILATERAL DIGITAL SCREENING MAMMOGRAM 3D/2D WITH CAD: 03/13/2023 CLINICAL: Routine screening. Family history of breast cancer. Comparison is made to exams dated: 06/30/2021 mammogram and 08/29/2018 mammogram - [facility]. Both breasts are heterogeneously dense, which may obscure small masses (category c / 51-75% glandular tissue). Current study was also evaluated with a Computer Aided Detection (CAD) system. No significant masses, calcifications, or other findings are seen in either breast. There has been no significant interval change. IMPRESSION: NEGATIVE There is no mammographic evidence of malignancy. A 1 year screening mammogram is recommended. Based on Tyrer-Cuzick model (a risk assessment model), the patient's lifetime risk is 21.8% and her 10 year risk is 2.2%. If a patient has an elevated risk, a more comprehensive evaluation should be considered and/or a referral to a genetic counselor. The [place] [employer], [place] [employer], and NCCN Guidelines advise the consideration of Breast MRI as an adjunct to screening mammography in patients whose Lifetime risk to develop breast cancer is 20% or higher. This exam was interpreted at Station ID: [id number]. NOTE: For mammograms, a report in lay terms will be sent to the patient. Approximately 15% of breast malignancies will not be visualized mammographically. In the management of a palpable breast mass, a negative mammogram must not discourage biopsy of a clinically suspicious lesion. Electronically Signed By: Po ingram/carina:03/13/2023 09:54:20 letter sent: Normal Exam ACR BI-RADS Category 1: Negative 3341F
== END ==
LOC: MAMMO 09:06
PROVIDERS: PCP Family Medicine; Referring Provider Family Medicine; Visit Provider Family Medicine
DX: Z12.31 Encounter for screening mammogram for malignant neoplasm of breast (principal); Z80.3 Family history of malignant neoplasm of breast; R92.333 Mammographic heterogeneous density, bilateral breasts
CPT/HCPCS: 77063; 77067

== ENCOUNTER 2023-06-01 08:26 | Emergency (ER) | payer OTHER, SELFPAY ==
[2023-06-01 08:31] VITALS: BP 133/87; PULSE 78; O2SAT 100
[2023-06-01 08:34] VITALS: BP 132/72; PULSE 77; RESP 18; TEMP 36.7; O2SAT 98; BMI 21.7
--- NOTE | 2023-06-01 08:43 | PC.NURSE ---
X-ray tech arrived to patient room and patient is refusing to have chest x-ray be completed. This RN attempted to ask patient again. This RN informed provider of patient refusal. No new orders given at this time.
--- NOTE | 2023-06-01 08:51 | ED_ITS ---
HPI - Chest Pain General Chief Complaint: Chest Pain Stated Complaint: upper GI pain/chest pain Time Seen by Provider: 06/01/23 08:33 Source: patient Mode of arrival: Ambulatory Limitations: no limitations History of Present Illness HPI narrative: Patient is a 37-year-old female. Has had a longstanding history of issues with palpitations. She was scheduled to get a Holter monitor at the beginning of next week. She has also had issues with reflux disease in the past. She has had her gallbladder removed. Over the past 7 days she has described epigastric discomfort that radiates up into the back of her chest. Does seem to change/get worse with eating. Unsure as to whether not this is exactly associated with the palpitations. Currently she has not having palpitations but is having the epigastric pain. No change in bowel habits. She denies chest pain or shortness of breath Related Data Home Medications Medication Instructions Recorded Confirmed Digestive Enzymes See Rx Instructions .Route .COMPLEX 12/03/17 03/07/23 Probiotic See Rx Instructions .Route .COMPLEX 12/03/17 03/07/23 Previous Rx's Medication Instructions Recorded meclizine 25 mg tablet 25 mg PO BID-TID PRN dizziness #30 11/06/18 tabs sucralfate 100 mg/mL oral 10 ml PO QACHS #420 mL 06/01/23 suspension (Carafate) Allergies Allergy/AdvReac Type Severity Reaction Status Date / Time metoclopramide Allergy Mild BAD Verified 03/07/23 08:29 [METOCLOPRAMIDE] REACTIONS metronidazole [From FLAGYL] Allergy Mild BAD Verified 03/07/23 08:29 REACTIONS ondansetron AdvReac Mild Nausea Verified 03/07/23 08:29 Review of Systems Review of Systems Narrative: See HPI Patient History Medical History Scoliosis Abnormal Pap smear of cervix Gastritis Tinnitus Surgical History (Updated 03/21/23 @ 19:04 by Jocelyne Llanes) Anesthesia History of laparoscopy History of cholecystectomy (~2013) Family History (Updated 03/21/23 @ 19:07 by Jocelyne Llanes) Father Hypertension Mother Cancer Grandfather Dementia Grandmother Gastric disease Grandfather Parkinson's disease Social History household members: spouse Smoking Status: Former smoker Tobacco: How many years used: 10 second hand exposure: No alcohol intake: current substance use type: does not use Smoking Status: Former smoker tobacco type: vaping alcohol intake frequency: a few times a month Substance Use Type: does not use Exam Initial Vital Signs Initial Vital Signs: Vital Signs Pulse Rate 78 06/01/23 08:31 Blood Pressure 133/87 06/01/23 08:31 Pulse Oximetry 100 06/01/23 08:31 Const General: cooperative, comfortable and No ill appearing HENMT Head: normal to inspection and normocephalic Resp Effort & Inspection: normal respiratory effort Cardio Rate: regular rate GI Inspection: normal to inspection and non-distended Palpation: soft, No firm and No guarding Neuro General: patient alert and patient awake Course Orders Ordered: ED Orders 06/01/23 08:33 XR chest 1V Stat EKG-12 Lead Stat 06/01/23 08:50 Complete Blood Count AUTO DIFF Stat Comprehensive Metabolic Panel Stat Lipase Stat Sodium Chloride (Sodium Chloride 0.9% Flush) 10 ml IV BID KELLY Sodium Chloride (Sodium Chloride 0.9% Flush) 10 ml IV PRN PRN PRN Reason: Flush Discontinued Medications Al Hydrox/Mg Hydrox/Simethicone 20 ml/ Lidocaine HCl 15 ml 0 ml PO NOW ONE Stop: 06/01/23 08:51 Last Admin: 06/01/23 09:16 Dose: 35 ml Pantoprazole Sodium (Pantoprazole 40 Mg Vial) 40 mg IV NOW ONE Stop: 06/01/23 08:51 Last Admin: 06/01/23 09:16 Dose: 40 mg Vital Signs Vital signs: Vital Signs - 8 hr 06/01/23 08:31 06/01/23 08:31 06/01/23 08:34 Temperature 98.0 F Pulse Rate 78 77 Respiratory Rate 18 Blood Pressure 133/87 132/72 Pulse Oximetry 100 98 Oxygen Delivery Method Room Air MDM - Chest Pain Lab Data Attestation: I reviewed the patient's lab results. 06/01/23 08:40 06/01/23 08:40 Labs: Lab Results 06/01/23 Range/Units 08:40 WBC 5.3 (4.5-11.0) X10^3/uL RBC 4.45 (4.0-5.2) X10^6/uL Hgb 13.6 (12.0-16.0) g/dL Hct 40.2 (36-46) % MCV 90.3 (80-100) fL MCH 30.6 (26-34) PG MCHC 33.8 (30-36) % RDW 13.4 (11.6-14.8) % Plt Count 256 (150-400) X10^3/uL Neut % (Auto) 61.6 (50-75) % Lymph % (Auto) 29.4 (25-40) % [place] % (Auto) 5.5 (3-14) % Eos % (Auto) 2.4 (2-4) % Baso % (Auto) 1.1 (0-2) % Neut # (Auto) 3300 (1692-0140) /uL Lymph # (Auto) 1600 (7035-4916) /uL [place] # (Auto) 300 (0-900) /uL Eos # (Auto) 100 (0-450) /uL Baso # (Auto) 100 (0-100) /uL Sodium 137 (137-145) mmol/L Potassium 3.8 (3.4-5.1) mmol/L Chloride 103 (98-107) mmol/L Carbon Dioxide 29 (22-32) mmol/L BUN 16 (7-17) mg/dL Creatinine 0.65 (0.52-1.04) mg/dL Estimated GFR > 60 (>60) mL/min BUN/Creatinine Ratio 24.6 H (6-22) Glucose 90 (70-100) mg/dL Calcium 9.6 (8.4-10.2) mg/dL Total Bilirubin 0.7 (0.2-1.3) mg/dL AST 28 (14-36) IU/L ALT 27 (<35) IU/L Alkaline Phosphatase 40 (38-126) U/L Total Protein 8.2 (6.3-8.2) g/dL Albumin 4.7 (3.5-5.0) g/dL Globulin 3.5 (1.7-4.1) g/dL Albumin/Globulin Ratio 1.3 (1.0-2.8) Lipase 108 (23-300) U/L ECG Data Attestation: I personally reviewed and interpreted this ECG as follows: Interpretation: Sinus rhythm Ventricular rate is 73 Normal axis Normal QRS Normal QTC No ST T wave changes MDM Narrative Medical decision making narrative: Patient refused imaging studies. Her LFTs are unremarkable. Lipase is unremarkable. EKG is unremarkable. She was scheduled to have a Holter monitor to beginning of next week. She had no ectopy here in the ER. Minimal relief with a GI cocktail although I have a very high suspicion that this is GI related. She was scheduled to see a GI provider approximately 2 weeks. Will have her start on a course of a proton pump inhibitor. Also prescribed Carafate. She can take Tylenol for any discomfort. She was given return precautions. Discharge Plan Departure Patient Disposition: Home Clinical Impression: Epigastric abdominal pain Instructions: DI for Epigastric Pain Activity Restrictions/Additional Instructions: I do recommend that you start on a course of a class of medicine caught a proton pump inhibitor. Examples of these include Nexium/Prilosec/omeprazole/esomeprazole. You can purchase these [id number]. I do recommend that you keep your appointment for your Holter monitor at the beginning of next week and also your appointment with your GI provider in 2 weeks. Return to the emergency department for new symptoms. Prescriptions: New sucralfate [Carafate] 100 mg/mL suspension 10 ml PO QACHS Qty: 420 2RF No Action Probiotic See Rx Instructions .ROUTE .COMPLEX Patient Comments: 1 CAP PO TWICE A WEEK Rx Instructions: 1 CAP PO TWICE A WEEK Digestive Enzymes See Rx Instructions .ROUTE .COMPLEX Patient Comments: 1 CAP PO PRN Rx Instructions: 1 CAP PO PRN meclizine 25 mg tablet 25 mg PO BID-TID PRN (Reason: dizziness) Qty: 30 0RF Referrals: Evy Isidro MD [Primary Care Provider] - Stand Alone Forms: Patient Portal/API
[2023-06-01 09:04] VITALS: PULSE 66; O2SAT 97
[2023-06-01] MEDS: PANTOPRAZOLE 40 MG VIAL IV (09:16)
[2023-06-01] MEDS: MAG HYDROX/ALUMINUM/SIMETH SUS 20 ML, LIDOCAINE VISCOUS 2% 15 ML PO (09:16)
[2023-06-01 09:22] LABS: Add Manual Diff / Slide Review NO; Basophils Absolute Auto 100 /uL (0-100); Basophils Percent Auto 1.1 % (0-2); Eosinophils Absolute Auto 100 /uL (0-450); Eosinophils Percent Auto 2.4 % (2-4); Hematocrit 40.2 % (36-46); Hemoglobin 13.6 g/dL (12.0-16.0); Lymphocytes Absolute Auto 1600 /uL (1100-4500); Lymphocytes Percent Auto 29.4 % (25-40); Mean Corpuscular HGB Conc 33.8 % (30-36); Mean Corpuscular Hemoglobin 30.6 PG (26-34); Mean Corpuscular Volume 90.3 fL (80-100); Monocytes Absolute Auto 300 /uL (0-900); Monocytes Percent Auto 5.5 % (3-14); Neutrophils Absolute Auto 3300 /uL (1500-7000); Neutrophils Percent Auto 61.6 % (50-75); Platelet Count 256 X10^3/uL (150-400); Red Blood Cell Count 4.45 X10^6/uL (4.0-5.2); Red Cell Distribution Width 13.4 % (11.6-14.8); White Blood Cell Count 5.3 X10^3/uL (4.5-11.0)
[2023-06-01 09:30] VITALS: PULSE 70; RESP 17; O2SAT 100
[2023-06-01 09:36] LABS: Alanine Aminotransferase 27 IU/L (<35); Albumin 4.7 g/dL (3.5-5.0); Albumin Globulin Ratio 1.3 (1.0-2.8); Alkaline Phosphatase 40 U/L (38-126); Aspartate Aminotransferase 28 IU/L (14-36); BUN Creatinine Ratio 24.6 (6-22); Bilirubin Total 0.7 mg/dL (0.2-1.3); Blood Urea Nitrogen 16 mg/dL (7-17); Calcium 9.6 mg/dL (8.4-10.2); Carbon Dioxide 29 mmol/L (22-32); Chloride 103 mmol/L (98-107); Estimated Glomerular Filt Rate > 60 mL/min (>60); Globulin 3.5 g/dL (1.7-4.1); Glucose 90 mg/dL (70-100); HEMOLYSIS < 15 (0-50); Lipase 108 U/L (23-300); Potassium 3.8 mmol/L (3.4-5.1); Sodium 137 mmol/L (137-145); Total Protein 8.2 g/dL (6.3-8.2)
[2023-06-01 10:00] VITALS: PULSE 61; RESP 15; O2SAT 98
== END 2023-06-01 10:13 | disposition home or self-care (01) ==
PROVIDERS: Emergency Provider Emergency Medicine; PCP Family Medicine
DX: R07.9 Chest pain, unspecified (principal); R10.13 Epigastric pain
CPT/HCPCS: 36415; 80053; 83690; 85025; 93005; 96374; 99284; C9113

== ENCOUNTER → 2023-06-04 14:47 | Outpatient (CLI) | payer OTHER, SELFPAY | PROVIDERS: PCP Family Medicine; Referring Provider Family Medicine; Visit Provider Family Medicine | DX: R00.2 Palpitations (principal) | CPT/HCPCS: 93242 ==

== ENCOUNTER → 2023-11-27 09:55 | Outpatient (CLI) | payer OTHER, SELFPAY | PROVIDERS: PCP Family Medicine; Visit Provider Physician Assistant | DX: R30.0 Dysuria (principal) | CPT/HCPCS: 87086 ==

== ENCOUNTER → 2023-11-27 10:51 | Outpatient (CLI) | payer OTHER, SELFPAY ==
--- NOTE | 2023-11-27 10:52 | DI.RAD.S_ITS ---
PROCEDURE: XR KUB INDICATIONS: bladder pain x 2 days, check for kidney stone TECHNIQUE: One view of the abdomen acquired. COMPARISON: None. FINDINGS: Surgical changes and devices: None. Bowel: Bowel gas pattern is normal. Soft tissues: No suspicious abdominal calcifications. Visualized solid organ contours appear normal in size. Bones: No suspicious bony lesions. IMPRESSION: No acute abnormality. Dictated by: Blu Lord M.D. on 11/27/2023 at 14:57 Approved by: Blu Lord M.D. on 11/27/2023 at 14:57
== END ==
PROVIDERS: PCP Family Medicine; Referring Provider Physician Assistant; Visit Provider Physician Assistant
DX: R39.89 Other symptoms and signs involving the genitourinary system (principal); R30.0 Dysuria
CPT/HCPCS: 74018; 87086

== ENCOUNTER 2023-11-28 17:17 | Emergency (ER) | payer OTHER, SELFPAY ==
[2023-11-28 18:15] VITALS: BP 161/80; PULSE 71; RESP 17; TEMP 36.2; O2SAT 100; BMI 23.6
[2023-11-28 20:19] LABS: Urine Volume 10mL (spun)
[2023-11-28 20:20] LABS: Bacteria Urine None Seen; Culture Indicated Urine Cult Not Indicated; RBC Urine None Seen (0-5/HPF); Squamous Epithelial Cell Urine None Seen (0-5/HPF); WBC Urine None Seen (0-5/HPF)
--- NOTE | 2023-11-28 20:46 | PC.NURSE ---
Patient took 220mg of naproxen at 0730 this morning. She says that it is no longer helping her pain. She is allergic to zofran and flagyl
[2023-11-28 20:47] LABS: Add Manual Diff / Slide Review NO; Basophils Absolute Auto 100 /uL (0-100); Basophils Percent Auto 0.9 % (0-2); Eosinophils Absolute Auto 100 /uL (0-450); Hematocrit 38.6 % (36-46); Hemoglobin 12.7 g/dL (12.0-16.0); Lymphocytes Absolute Auto 2200 /uL (1100-4500); Lymphocytes Percent Auto 34.7 % (25-40); Mean Corpuscular Hemoglobin 29.7 PG (26-34); Monocytes Absolute Auto 400 /uL (0-900); Monocytes Percent Auto 6.1 % (3-14); Neutrophils Absolute Auto 3700 /uL (1500-7000); Neutrophils Percent Auto 57.3 % (50-75); Platelet Count 260 X10^3/uL (150-400); Red Blood Cell Count 4.29 X10^6/uL (4.0-5.2); Red Cell Distribution Width 13.5 % (11.6-14.8); White Blood Cell Count 6.4 X10^3/uL (4.5-11.0)
[2023-11-28 21:04] LABS: Alanine Aminotransferase 29 IU/L (<35); Albumin 4.4 g/dL (3.5-5.0); Albumin Globulin Ratio 1.3 (1.0-2.8); Alkaline Phosphatase 36 U/L (38-126); Aspartate Aminotransferase 36 IU/L (14-36); BUN Creatinine Ratio 17.9 (6-22); Bilirubin Total 0.7 mg/dL (0.2-1.3); Blood Urea Nitrogen 12 mg/dL (7-17); Calcium 9.2 mg/dL (8.4-10.2); Carbon Dioxide 26 mmol/L (22-32); Chloride 103 mmol/L (98-107); Estimated Glomerular Filt Rate > 60 mL/min (>60); Globulin 3.3 g/dL (1.7-4.1); Glucose 94 mg/dL (70-100); HEMOLYSIS 22 (0-50); Lipase 64 U/L (23-300); Potassium 3.7 mmol/L (3.4-5.1); Sodium 134 mmol/L (137-145); Total Protein 7.7 g/dL (6.3-8.2)
[2023-11-28 21:53] VITALS: BP 154/82; PULSE 102; RESP 18; O2SAT 98
--- NOTE | 2023-11-28 21:53 | ED_ITS ---
HPI - Abdominal Pain General Chief Complaint: Abdominal Pain Stated Complaint: [facility] sent her here for CT scan Time Seen by Provider: 11/28/23 20:54 Source: patient Mode of arrival: Ambulatory History of Present Illness HPI narrative: 38-year-old female complains of intermittent pelvic area discomfort for the last 6 days. She had dysuria and burning periurethral 6 days ago for a proximally that 1 day, symptoms seemed to get better, now with 2 days duration of pelvic area discomfort, was evaluated in clinic, recalls x-ray done and was negative, urinalysis reportedly negative, urine culture reportedly negative. She is using [id number] azo, no longer having burning with urination but still has pelvic area discomfort. History of ovarian cysts noted. No vaginal discharge. Last menstrual period was last week on time and normal. Denies loose stools, has had some nausea. Related Data Previous Rx's Medication Instructions Recorded naproxen 500 mg tablet 500 mg PO BID #30 tabs 11/27/23 nitrofurantoin 100 mg PO Q12H 5 days #10 caps 11/27/23 monohydrate/macrocrystals 100 mg capsule (Macrobid) Allergies Allergy/AdvReac Type Severity Reaction Status Date / Time metoclopramide Allergy Mild BAD Verified 11/28/23 18:19 [METOCLOPRAMIDE] REACTIONS metronidazole [From FLAGYL] Allergy Mild BAD Verified 11/28/23 18:19 REACTIONS ondansetron AdvReac Mild Nausea Verified 11/28/23 18:19 Review of Systems Review of Systems Narrative: see HPI Patient History Medical History Scoliosis Abnormal Pap smear of cervix Gastritis Tinnitus Surgical History (Updated 03/21/23 @ 19:04 by Jocelyne Llanes) Anesthesia History of laparoscopy History of cholecystectomy (~2013) Family History (Updated 03/21/23 @ 19:07 by Jocelyne Llanes) Father Hypertension Mother Cancer Grandfather Dementia Grandmother Gastric disease Grandfather Parkinson's disease Social History household members: spouse Smoking Status: Former smoker Tobacco: How many years used: 10 second hand exposure: No alcohol intake: current substance use type: does not use Smoking Status: Former smoker tobacco type: vaping alcohol intake frequency: a few times a month Substance Use Type: does not use Exam Narrative Exam Narrative: GENERAL: Well-developed patient, in mild distress. HEAD: Atraumatic. Normocephalic. EYES: Pupils equal round and reactive. Extraocular motions intact. No scleral icterus. No injection or drainage. ENT: Nose without bleeding, purulent drainage. Throat without erythema, tonsillar hypertrophy or exudate. Airway patent. NECK: Trachea midline. Non tender CARDIOVASCULAR: Regular rate and rhythm without murmurs, gallops, or rubs. RESPIRATORY: Clear to auscultation. Breath sounds equal bilaterally. No wheezes, rales, or rhonchi. GASTROINTESTINAL: Abdomen soft, non-tender, nondistended. EXTREMITIES: No edema or joint tenderness. BACK: Nontender without deformity or crepitance. No flank tenderness. NEURO: AOx3. Motor functions grossly nonfocal SKIN: No rash or erythema of visible areas Initial Vital Signs Initial Vital Signs: Vital Signs Temperature 97.2 F L 11/28/23 18:15 Pulse Rate 71 11/28/23 18:15 Respiratory Rate 17 11/28/23 18:15 Blood Pressure 161/80 H 11/28/23 18:15 Pulse Oximetry 100 11/28/23 18:15 Oxygen Delivery Method Room Air 11/28/23 18:15 Course Orders Ordered: ED Orders 11/28/23 18:20 Chlamydia Gonorrhea PCR -URINE Stat Urine Microscopic Stat 11/28/23 20:34 Complete Blood Count AUTO DIFF Stat Comprehensive Metabolic Panel Stat Lipase Stat 11/28/23 22:04 US pelvic complete Stat Discontinued Medications Ketorolac Tromethamine (Ketorolac 30 Mg/Ml Vial) 15 mg IV NOW ONE Stop: 11/28/23 22:06 Last Admin: 11/28/23 22:23 Dose: 15 mg Documented By: SB Ondansetron HCl (Ondansetron 4 Mg/2 Ml Inj) 4 mg IV NOW PRN PRN Reason: Nausea And Vomiting Ondansetron HCl (Ondansetron 4 Mg Odt) 4 mg PO NOW PRN PRN Reason: Nausea And Vomiting Vital Signs Vital signs: Vital Signs - 8 hr 11/28/23 18:15 11/28/23 21:53 11/28/23 22:32 Temperature 97.2 F L Pulse Rate 71 102 H 83 Respiratory Rate 17 18 18 Blood Pressure 161/80 H 154/82 H 140/84 Pulse Oximetry 100 98 100 Oxygen Delivery Method Room Air Room Air Room Air 11/29/23 01:09 Temperature Pulse Rate 69 Respiratory Rate 18 Blood Pressure 126/79 Pulse Oximetry 98 Oxygen Delivery Method Room Air MDM - Abdominal Pain Lab Data Attestation: I reviewed the patient's lab results. 11/28/23 20:34 11/28/23 20:34 Labs: Lab Results 11/28/23 11/28/23 Range/Units 18:20 20:34 WBC 6.4 (4.5-11.0) X10^3/uL RBC 4.29 (4.0-5.2) X10^6/uL Hgb 12.7 (12.0-16.0) g/dL Hct 38.6 (36-46) % MCV 90.0 (80-100) fL MCH 29.7 (26-34) PG MCHC 33.0 (30-36) % RDW 13.5 (11.6-14.8) % Plt Count 260 (150-400) X10^3/uL Neut % (Auto) 57.3 (50-75) % Lymph % (Auto) 34.7 (25-40) % Swain % (Auto) 6.1 (3-14) % Eos % (Auto) 1.0 L (2-4) % Baso % (Auto) 0.9 (0-2) % Neut # (Auto) 3700 (6405-0772) /uL Lymph # (Auto) 2200 (2672-0589) /uL Swain # (Auto) 400 (0-900) /uL Eos # (Auto) 100 (0-450) /uL Baso # (Auto) 100 (0-100) /uL Sodium 134 L (137-145) mmol/L Potassium 3.7 (3.4-5.1) mmol/L Chloride 103 (98-107) mmol/L Carbon Dioxide 26 (22-32) mmol/L BUN 12 (7-17) mg/dL Creatinine 0.67 (0.52-1.04) mg/dL Estimated GFR > 60 (>60) mL/min BUN/Creatinine Ratio 17.9 (6-22) Glucose 94 (70-100) mg/dL Calcium 9.2 (8.4-10.2) mg/dL Total Bilirubin 0.7 (0.2-1.3) mg/dL AST 36 (14-36) IU/L ALT 29 (<35) IU/L Alkaline Phosphatase 36 L (38-126) U/L Total Protein 7.7 (6.3-8.2) g/dL Albumin 4.4 (3.5-5.0) g/dL Globulin 3.3 (1.7-4.1) g/dL Albumin/Globulin Ratio 1.3 (1.0-2.8) Lipase 64 (23-300) U/L Urine RBC None seen (0-5/HPF) Urine WBC None seen (0-5/HPF) Ur Squamous Epith Cells None seen (0-5/HPF) Urine Bacteria None seen (None) Ur Culture Indicated? Cult not indicated Vol Urine Centrifuged 10ml (spun) Ur Chlamydia DNA (PCR) Not detected N gonorrhoeae DNA (PCR) Not detected Point of care testing: Point of Care Testing Test Results Negative Urine Dip Bedside Urine Glucose Negative Bedside Urine Bilirubin - Negative Bedside Urine Ketone - Negative Urine Specific [place] 1.010 Bedside Urine Occult Blood +/- Bedside Urine pH 7.5 Bedside Urine Protein - Negative Bedside Urine Urobilinogen - Negative Bedside Urine Nitrite - Negative Bedside Urine Leukocytes - Negative Esterase Imaging Data Pelvic ultrasound: Radiologist's Impression: Close Pelvis Ultrasound (Signed) Po Hawk - 11/28/23 Launch?[place] [address] Ultrasound Report Signed Patient: Alondra Mayes MR#: [id number] : 1985 Acct:[id number] Age/Sex: 38 / F Date of Service: 11/28/23 Loc: ED Accession Number: [id number] Procedure: US pelvic complete Ordering Provider: Raz Rain MD PROCEDURE: US PELVIC COMPLETE INDICATIONS: pelvic pain TECHNIQUE: Real-time scanning was performed of the pelvic organs, with image documentation. Additional endovaginal scanning was necessary due to incomplete visualization of the adnexal and endometrial structures by transabdominal scanning. COMPARISON: None. FINDINGS: Uterus: Uterus is anteverted and normal in size at 9.5 x 5.8 x 4.6 cm. The myometrium is homogeneous. The endometrium measures 10 mm combined thickness. A midline anterior intramural and subserosal fibroid measures 1.9 x 2.3 x 2.1 cm. Ovaries: The right ovary measures 4.1 x 2.2 x 2.2 cm, with a calculated ovarian volume of 10.4 cc. The left ovary measures 3.3 x 2.8 x 1.4 cm, with a calculated ovarian volume of 6.8 cc. The ovaries have a normal sonographic appearance. Less than 12 follicles can be seen in each ovary. No adnexal masses are seen. And irregular hypoechoic cyst in the right ovary measures 2.4 x 2.0 x 1.3 cm. Other: No pathologic free abdominal or pelvic fluid. IMPRESSION: 1. Irregular 2.4 cm right ovarian cyst is suspicious for a ruptured or regressing cyst. Consider follow-up ultrasound in 6-12 weeks. 2. Anterior intramural/subserosal 2.3 cm fibroid. Approved by: Po Hawk M.D. on 11/28/2023 at 23:56 MDM Narrative Medical decision making narrative: 38-year-old female with pelvic area discomfort, previous dysuria seems to be resolved, last menstrual period a week ago. Urine test negative from screening. Urinalysis negative. Recent x-ray and urine culture from clinic reportedly-2 days ago. Still having pelvic discomfort. Ultrasound pelvis requested. Urine GC chlamydia requested. Pelvic ultrasound, sono tech prelim report. Possible right ovary ruptured cyst, a regular border, debris, 2.4 cm by 2.0 cm x 1.3 cm. Increased vascularity right ovary compared to left. Good flow both ovaries. Awaiting Radiology over reading. Urine chlamydia negative, urine GC negative. Ultrasound pelvis shows irregular right ovarian cysts suspicious or recently rupturing or regressing, 20.4 cm diameter. Also anterior 2.3 cm fibroid intramural/subserosal noted. See radiology report. Advised [id number] analgesics as needed. Offered opiate more potent analgesic, declined. Follow up with Gynecology, contact information for Dr. Valente provided. Return precautions discussed Discharge Plan Departure Patient Disposition: Home Clinical Impression: Pelvic pain, Uterine fibroid, Cyst of right ovary Activity Restrictions/Additional Instructions: Pelvic discomfort, recent evaluation clinic with negative reported urinalysis studies. No fever. We discussed pelvic examination here, declined for now. test negative. Ultrasound pelvis showed presence of a right-sided ovarian cyst that appears to be recently ruptured and/or involuting, which might be a cause of some discomfort. There is good blood flow to both ovaries. There is no infectious obvious changes to either ovary or adnexal system. There is also a 2.3 cm diameter uterine fibroid, this can also be a cause of discomfort if it happened to be degenerating but tends to cause symptoms at larger sizes, not felt to be likely cancerous tumor, common benign tumor suspected. Follow up with Gynecology, contact information provided. Return earlier to this/nearest emergency department for any change worsening symptoms or any concerns prior Prescriptions: No Action nitrofurantoin monohyd/m-cryst [Macrobid] 100 mg capsule 100 mg PO Q12H 5 Days Qty: 10 0RF Rx Instructions: must administer with a meal/food naproxen 500 mg tablet 500 mg PO BID Qty: 30 0RF Referrals: Evy Isidro MD [Primary Care Provider] - Elsie Castillo DO [Physician] - Stand Alone Forms: Patient Portal/API
--- NOTE | 2023-11-28 22:04 | DI.US.S_ITS ---
PROCEDURE: US PELVIC COMPLETE INDICATIONS: pelvic pain TECHNIQUE: Real-time scanning was performed of the pelvic organs, with image documentation. Additional endovaginal scanning was necessary due to incomplete visualization of the adnexal and endometrial structures by transabdominal scanning. COMPARISON: None. FINDINGS: Uterus: Uterus is anteverted and normal in size at 9.5 x 5.8 x 4.6 cm. The myometrium is homogeneous. The endometrium measures 10 mm combined thickness. A midline anterior intramural and subserosal fibroid measures 1.9 x 2.3 x 2.1 cm. Ovaries: The right ovary measures 4.1 x 2.2 x 2.2 cm, with a calculated ovarian volume of 10.4 cc. The left ovary measures 3.3 x 2.8 x 1.4 cm, with a calculated ovarian volume of 6.8 cc. The ovaries have a normal sonographic appearance. Less than 12 follicles can be seen in each ovary. No adnexal masses are seen. And irregular hypoechoic cyst in the right ovary measures 2.4 x 2.0 x 1.3 cm. Other: No pathologic free abdominal or pelvic fluid. IMPRESSION: 1. Irregular 2.4 cm right ovarian cyst is suspicious for a ruptured or regressing cyst. Consider follow-up ultrasound in 6-12 weeks. 2. Anterior intramural/subserosal 2.3 cm fibroid. Approved by: Po Hawk M.D. on 11/28/2023 at 23:56
[2023-11-28] MEDS: KETOROLAC 30 MG/ML VIAL 15 MG IV (22:23)
[2023-11-28 22:32] VITALS: BP 140/84; PULSE 83; RESP 18; O2SAT 100
[2023-11-29 00:32] LABS: Urine N gonorrhoeae NOT DETECTED
[2023-11-29 00:35] LABS: Urine Chlamydia NOT DETECTED
[2023-11-29 01:09] VITALS: BP 126/79; PULSE 69; RESP 18; O2SAT 98
== END 2023-11-29 01:10 | disposition home or self-care (01) ==
PROVIDERS: Emergency Medicine; Emergency Provider Emergency Medicine; PCP Family Medicine
DX: D25.1 Intramural leiomyoma of uterus (principal); D25.2 Subserosal leiomyoma of uterus; N83.201 Unspecified ovarian cyst, right side; R10.2 Pelvic and perineal pain; R30.0 Dysuria
CPT/HCPCS: 36415; 76830; 76856; 80053; 81003; 81015; 81025; 83690; 85025; 87491; 87591; 93975; 96374; 99284; J1885

== ENCOUNTER → 2023-11-29 15:17 | Outpatient (CLI) | payer OTHER, SELFPAY | PROVIDERS: PCP Family Medicine; Visit Provider Specialist | DX: N89.8 Other specified noninflammatory disorders of vagina (principal); N34.2 Other urethritis; D25.2 Subserosal leiomyoma of uterus | CPT/HCPCS: 87480; 87510; 87660 ==

== ENCOUNTER 2024-04-03 12:47 | Emergency (ER) | payer OTHER, SELFPAY ==
--- NOTE | 2024-04-03 12:55 | EKG_ITS ---
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
[2024-04-03 13:00] VITALS: BP 158/80; PULSE 81; RESP 18; TEMP 36.4; O2SAT 100; BMI 22.6
--- NOTE | 2024-04-03 13:08 | DI.RAD.S_ITS ---
PROCEDURE: XR CHEST 1V INDICATIONS: chest pain TECHNIQUE: One view of the chest was acquired. COMPARISON: [facility], CR, XR CHEST 2V, 01/28/2023, 13:10. [facility], CR, XR CHEST 2V, 10/27/2022, 8:40. FINDINGS: Surgical changes and devices: None. Lungs and pleura: Lungs are clear. No pleural effusions or pneumothorax. Mediastinum: Mediastinal contours appear normal. Heart size is normal. Bones and chest wall: No suspicious bony lesions. Overlying soft tissues appear unremarkable. IMPRESSION: No acute cardiopulmonary abnormality is seen. Dictated by: Geovanny Lal M.D. on 04/03/2024 at 13:30 Approved by: Geovanny Lal M.D. on 04/03/2024 at 13:31
[2024-04-03 13:23] LABS: Add Manual Diff / Slide Review NO; Basophils Absolute Auto 0 /uL (0-100); Basophils Percent Auto 0.9 % (0-2); Eosinophils Absolute Auto 100 /uL (0-450); Eosinophils Percent Auto 1.4 % (2-4); Hematocrit 38.4 % (36-46); Hemoglobin 12.7 g/dL (12.0-16.0); Lymphocytes Absolute Auto 1700 /uL (1100-4500); Lymphocytes Percent Auto 34.6 % (25-40); Mean Corpuscular HGB Conc 33.2 % (30-36); Mean Corpuscular Hemoglobin 29.7 PG (26-34); Mean Corpuscular Volume 89.4 fL (80-100); Monocytes Absolute Auto 300 /uL (0-900); Monocytes Percent Auto 5.9 % (3-14); Neutrophils Absolute Auto 2700 /uL (1500-7000); Neutrophils Percent Auto 57.2 % (50-75); Platelet Count 266 X10^3/uL (150-400); Red Blood Cell Count 4.29 X10^6/uL (4.0-5.2); Red Cell Distribution Width 13.6 % (11.6-14.8); White Blood Cell Count 4.8 X10^3/uL (4.5-11.0)
[2024-04-03 13:28] LABS: INR 1.1 (0.9-1.3); Prothrombin Time 11.9 SECONDS (9.4-12.5)
[2024-04-03 13:30] LABS: PTT Partial Thromboplastin Tim 36 SECONDS (25.1-36.5)
[2024-04-03 13:33] LABS: Alanine Aminotransferase 15 IU/L (<35); Albumin 4.5 g/dL (3.5-5.0); Albumin Globulin Ratio 1.5 (1.0-2.8); Alkaline Phosphatase 42 U/L (38-126); Aspartate Aminotransferase 25 IU/L (14-36); BUN Creatinine Ratio 15.5 (6-22); Bilirubin Total 0.5 mg/dL (0.2-1.3); Blood Urea Nitrogen 11 mg/dL (7-17); Calcium 9.3 mg/dL (8.4-10.2); Carbon Dioxide 23 mmol/L (22-32); Chloride 104 mmol/L (98-107); Creatine Kinase 66 U/L (30-135); Estimated Glomerular Filt Rate > 60 mL/min (>60); Glucose 93 mg/dL (70-100); HEMOLYSIS < 15 (0-50); Lipase 83 U/L (23-300); Magnesium 1.8 mg/dL (1.6-2.3); Potassium 3.9 mmol/L (3.4-5.1); Sodium 136 mmol/L (137-145); Total Protein 7.5 g/dL (6.3-8.2)
[2024-04-03 13:45] LABS: NT-proBNP (BNP-Adult 18+) 23 pg/mL (<125); Troponin I < 0.012 ng/mL (0.01-0.034)
[2024-04-03 17:28] VITALS: BP 109/69; PULSE 73; RESP 16; O2SAT 100
[2024-04-03 17:48] VITALS: BP 119/76; PULSE 66
[2024-04-03 18:00] VITALS: BP 109/66; PULSE 66; O2SAT 99
--- NOTE | 2024-04-03 18:11 | ED.ARRPALP ---
HPI - Arrhythmia/Palpitations General Chief Complaint: Arrhythmia/Palpitations Stated Complaint: Mild chest pain , heart palpitations Time Seen by Provider: 04/03/24 17:54 Source: patient Mode of arrival: Ambulatory History of Present Illness HPI narrative: 38-year-old woman with intermittent chest pain, recent cardiac evaluation with Cardiology for PVCs. Notes that activity seems to make the palpitations worse. Yesterday she began having upper abdominal pain that radiated down into her abdomen and today that same pain is radiating up into her chest. She comes to the ER for further Evaluation. 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 There has been no nausea, fever, vomiting. No cough or respiratory complaints Related Data Previous Rx's Medication Instructions Recorded naproxen 500 mg tablet 500 mg PO BID #30 tabs 11/27/23 naproxen 500 mg tablet (Naprosyn) 500 mg PO BID pain #20 tabs 11/29/23 Allergies Allergy/AdvReac Type Severity Reaction Status Date / Time metoclopramide Allergy Mild BAD Verified 11/29/23 14:54 [METOCLOPRAMIDE] REACTIONS metronidazole [From FLAGYL] Allergy Mild BAD Verified 11/29/23 14:54 REACTIONS ondansetron AdvReac Mild Nausea Verified 11/29/23 14:54 Review of Systems Review of Systems Narrative: Pertinent positive and negative findings as per HPI Patient History Medical History Scoliosis Abnormal Pap smear of cervix Gastritis Tinnitus Surgical History (Updated 03/21/23 @ 19:04 by Jocelyne Llanes) Anesthesia History of laparoscopy History of cholecystectomy (~2013) Family History (Updated 03/21/23 @ 19:07 by Jocelyne Llanes) Father Hypertension Mother Cancer Grandfather Dementia Grandmother Gastric disease Grandfather Parkinson's disease Social History household members: spouse Smoking Status: Former smoker Tobacco: How many years used: 10 second hand exposure: No alcohol intake: current substance use type: does not use Smoking Status: Former smoker tobacco type: vaping alcohol intake frequency: a few times a month Exam Initial Vital Signs Initial Vital Signs: Vital Signs Temperature 97.6 F 04/03/24 13:00 Pulse Rate 81 04/03/24 13:00 Respiratory Rate 18 04/03/24 13:00 Blood Pressure 158/80 H 04/03/24 13:00 Pulse Oximetry 100 04/03/24 13:00 Oxygen Delivery Method Room Air 04/03/24 13:00 General: Healthy appearing, in no acute distress. Able to give a complete and coherent history. Well-nourished well-developed HEENT: Moist mucous membranes, normal sclera with reactive pupils, Respiratory: Lungs are clear to auscultation, no wheezing no rales no rhonchi. Full and symmetrical air movement Cardiac: Regular rate and rhythm no murmurs no bruits Abdomen: Soft, tender in the epigastrium and significant tenderness in the left lower quadrant without rebound or guarding. Pain is also noted in the left upper quadrant Skin: Warm and dry, no rashes Neurologic: Grossly neurologically intact with no obvious asymmetries or abnormalities Extremities: No trauma, well perfused Psych: Cooperative, appropriate insight and affect Course Orders Ordered: ED Orders 04/03/24 12:55 EKG-12 Lead Stat 04/03/24 13:08 XR chest 1V Stat 04/03/24 13:09 Test Serum,Qual Stat 04/03/24 13:13 Complete Blood Count AUTO DIFF Stat Comprehensive Metabolic Panel Stat Lipase Stat Magnesium Stat NT-proBNP (BNP-Adult 18+) Stat PTT Partial Thromboplastin Chaim Stat Prothrombin Time INR Stat Troponin & CK Cardiac Panel Stat 04/03/24 18:24 CT abdomen pelvis w con Stat Vital Signs Vital signs: Vital Signs - 8 hr 04/03/24 13:00 04/03/24 17:28 04/03/24 17:48 Temperature 97.6 F Pulse Rate 81 73 66 Respiratory Rate 18 16 Blood Pressure 158/80 H 109/69 Pulse Oximetry 100 100 Oxygen Delivery Method Room Air Room Air 04/03/24 17:48 04/03/24 18:00 04/03/24 18:00 Temperature Pulse Rate 66 Respiratory Rate Blood Pressure 119/76 109/66 Pulse Oximetry 99 Oxygen Delivery Method 04/03/24 18:30 04/03/24 18:30 Temperature Pulse Rate 63 Respiratory Rate 20 Blood Pressure 114/73 Pulse Oximetry 99 Oxygen Delivery Method MDM - Arrhythmia/Palpitations Lab Data 04/03/24 13:13 04/03/24 13:13 Labs: Lab Results 04/03/24 04/03/24 Range/Units 13:09 13:13 WBC 4.8 (4.5-11.0) X10^3/uL RBC 4.29 (4.0-5.2) X10^6/uL Hgb 12.7 (12.0-16.0) g/dL Hct 38.4 (36-46) % MCV 89.4 (80-100) fL MCH 29.7 (26-34) PG MCHC 33.2 (30-36) % RDW 13.6 (11.6-14.8) % Plt Count 266 (150-400) X10^3/uL Neut % (Auto) 57.2 (50-75) % Lymph % (Auto) 34.6 (25-40) % Blanco % (Auto) 5.9 (3-14) % Eos % (Auto) 1.4 L (2-4) % Baso % (Auto) 0.9 (0-2) % Neut # (Auto) 2700 (5336-1639) /uL Lymph # (Auto) 1700 (6581-9397) /uL [place] # (Auto) 300 (0-900) /uL Eos # (Auto) 100 (0-450) /uL Baso # (Auto) 0 (0-100) /uL PT 11.9 (9.4-12.5) SECONDS INR 1.1 (0.9-1.3) APTT 36 (25.1-36.5) SECONDS Sodium 136 L (137-145) mmol/L Potassium 3.9 (3.4-5.1) mmol/L Chloride 104 (98-107) mmol/L Carbon Dioxide 23 (22-32) mmol/L BUN 11 (7-17) mg/dL Creatinine 0.71 (0.52-1.04) mg/dL Estimated GFR > 60 (>60) mL/min BUN/Creatinine Ratio 15.5 (6-22) Glucose 93 (70-100) mg/dL Calcium 9.3 (8.4-10.2) mg/dL Magnesium 1.8 (1.6-2.3) mg/dL Total Bilirubin 0.5 (0.2-1.3) mg/dL AST 25 (14-36) IU/L ALT 15 (<35) IU/L Alkaline Phosphatase 42 (38-126) U/L Total Creatine Kinase 66 (30-135) U/L Troponin I < 0.012 (0.01-0.034) ng/mL NT-Pro-B Natriuret Pep 23 (<125) pg/mL Total Protein 7.5 (6.3-8.2) g/dL Albumin 4.5 (3.5-5.0) g/dL Globulin 3.0 (1.7-4.1) g/dL Albumin/Globulin Ratio 1.5 (1.0-2.8) Lipase 83 (23-300) U/L Serum , Qual Negative (Negative) Imaging Data CT scan - abdomen/pelvis: Radiologist's Impresson: COMPARISON: [facility], CT, CT ABDOMEN PELVIS W CON, 10/02/2021, 22:22. FINDINGS: Image quality: Diagnostic. Lower Chest: No significant findings. ABDOMEN: Liver: No solid mass. Gallbladder: Absent. Biliary ducts: No biliary dilation. Pancreas: No ductal dilation. Spleen: Size is within normal limits. Adrenal Glands: No adrenal nodules. Kidneys and Ureters: No hydronephrosis. No solid mass. No complex renal cystic lesion which requires follow up. Stomach and Bowel: Normal colonic caliber, without significant wall thickening. The appendix is not dilated. No small bowel obstruction. Peritoneum: No pneumoperitoneum. No ascites. Trace fluid in the pelvis. Ventral Wall: No significant ventral hernia. Abdominal Nodes: No retroperitoneal or mesenteric adenopathy by size criteria. Vessels: Aorta and inferior vena cava are normal in size. PELVIS: Pelvic Organs: Small ovarian cysts. Trace free fluid in the pelvis. Uterine fibroid. Bladder: No bladder wall thickening, accounting for underdistention. Pelvic Nodes: No enlarged lymph nodes. Miscellaneous: No inguinal hernias are seen. Bones: No aggressive osseous abnormality. IMPRESSION: 1. No bowel obstruction. Normal appendix. No hydronephrosis. 2. Small ovarian cysts. Trace free fluid pelvis. Dictated by: Geovanny Lal M.D. on 04/03/2024 at 19:56 MDM Narrative Medical decision making narrative: CC:Palpitations, upper abdominal pain now radiating into the chest Data collected from: patient Medical records reviewed: patient had a Zio patch monitor in [place] of 2024 for palpitations all palpitations were associated with either PACs PVCs and findings were otherwise benign Differential considered: Exam documented above, pertinent findings include: patient is tender in the left upper quadrant without rebound or guarding Lab Test results independently reviewed as above. Pertinent findings: CBC is unremarkable chemistries are reassuring troponin is undetected BNP is low Independently reviewed EKG: EKG shows sinus rhythm at a rate of 87 with no acute ischemia intervals are appropriate Imaging studies independently reviewed: chest x-ray is unremarkable CT scan of the abdomen and pelvis is completely benign Discussion: 38-year-old woman with increasing left upper abdominal pain now radiating up into the abdomen down into the pelvis. Chest x-ray is unremarkable labs reassuring CT scan of the abdomen does not suggest additional pathology. Discharge Plan Departure Patient Disposition: Home Clinical Impression: Abdominal pain Qualifiers: Abdominal location: generalized Qualified Code(s): R10.84 - Generalized abdominal pain Activity Restrictions/Additional Instructions: Thank you for coming in today I am sorry that you are suffering with this pain. I did not find an obvious explanation such as infection, masses, tumors, abscess or anything that would require antibiotics, hospital admission or surgical consultation. I have given you a copy of your CT scan so that you can read through the specific details. At this point I think that a musculoskeletal explanation may well be likely. I am going to suggest that you schedule an appointment with a manual therapy/osteopathic medicine provider. You may have some benefit contacting Alex puckett with [facility] manual therapy in [place]. His phone number is [phone]. If you find that you are getting worse or develop any new symptoms, please feel free to return to the emergency department for further evaluation. Prescriptions: No Action naproxen 500 mg tablet 500 mg PO BID Qty: 30 0RF naproxen [Naprosyn] 500 mg tablet 500 mg PO BID Qty: 20 0RF Referrals: Evy Isidro MD [Primary Care Provider] - Stand Alone Forms: Patient Portal/API/Survey
--- NOTE | 2024-04-03 18:24 | DI.CT.S_ITS ---
PROCEDURE: CT ABDOMEN PELVIS W CON INDICATIONS: epigastrium and left lower quadrant tenderness, acute TECHNIQUE: After the administration of intravenous contrast, axial sections acquired from the lung bases to the pubic symphysis. Coronal and sagittal reformats were performed. For radiation dose reduction, the following was used: automated exposure control, adjustment of mA and/or kV according to patient size. COMPARISON: [facility], CT, CT ABDOMEN PELVIS W CON, 10/02/2021, 22:22. FINDINGS: Image quality: Diagnostic. Lower Chest: No significant findings. ABDOMEN: Liver: No solid mass. Gallbladder: Absent. Biliary ducts: No biliary dilation. Pancreas: No ductal dilation. Spleen: Size is within normal limits. Adrenal Glands: No adrenal nodules. Kidneys and Ureters: No hydronephrosis. No solid mass. No complex renal cystic lesion which requires follow up. Stomach and Bowel: Normal colonic caliber, without significant wall thickening. The appendix is not dilated. No small bowel obstruction. Peritoneum: No pneumoperitoneum. No ascites. Trace fluid in the pelvis. Ventral Wall: No significant ventral hernia. Abdominal Nodes: No retroperitoneal or mesenteric adenopathy by size criteria. Vessels: Aorta and inferior vena cava are normal in size. PELVIS: Pelvic Organs: Small ovarian cysts. Trace free fluid in the pelvis. Uterine fibroid. Bladder: No bladder wall thickening, accounting for underdistention. Pelvic Nodes: No enlarged lymph nodes. Miscellaneous: No inguinal hernias are seen. Bones: No aggressive osseous abnormality. IMPRESSION: 1. No bowel obstruction. Normal appendix. No hydronephrosis. 2. Small ovarian cysts. Trace free fluid pelvis. Dictated by: Geovanny Lal M.D. on 04/03/2024 at 19:56 Approved by: Geovanny Lal M.D. on 04/03/2024 at 20:02
[2024-04-03 18:30] VITALS: BP 114/73; PULSE 63; RESP 20; O2SAT 99
--- NOTE | 2024-04-03 18:44 | PC.NURSE ---
Pt refusing urine test and urine preg test
--- NOTE | 2024-04-03 18:44 | PC.NURSE ---
Chest pain, back pain, belly pain. Worse with movement or lying back. Denies issues with urination. Pt denies fevers. Pt denies n/v. alert and oriented. VSS. respirations regular and unlabored.
[2024-04-03 18:55] LABS: Pregnancy Test Serum,Qual Negative (Negative)
[2024-04-03 21:12] VITALS: BP 127/68; PULSE 72; O2SAT 99
== END 2024-04-03 21:12 | disposition home or self-care (01) ==
PROVIDERS: Emergency Medicine; Emergency Provider Emergency Medicine; PCP Family Medicine
DX: R10.84 Generalized abdominal pain (principal); R07.9 Chest pain, unspecified; Z86.79 Personal history of other diseases of the circulatory system
CPT/HCPCS: 71045; 74177; 80053; 82550; 83690; 83735; 83880; 84484; 84703; 85025; 85610; 85730; 93005; 99283; 99284; Q9967

== ENCOUNTER → 2024-05-13 14:06 | Outpatient (CLI) | payer OTHER, SELFPAY | PROVIDERS: PCP Family Medicine; Referring Provider Family Medicine; Visit Provider Family Medicine | DX: Z13.79 Encounter for other screening for genetic and chromosomal anomalies (principal) | CPT/HCPCS: 36415 ==

== ENCOUNTER → 2024-06-18 09:18 | Outpatient (CLI) | payer OTHER, SELFPAY ==
--- NOTE | 2024-06-18 09:19 | DI.MRI.S_ITS ---
MR breast BI wo/w con: 06/18/2024. BI-RADS: 1 CLINICAL: 38-year old female for bilateral diagnostic breast MRI. Current reported family history of breast cancer: mother. The patient is a BRCA2 gene mutation carrier. PRIOR EXAMS: 03/13/2023, 06/30/2021. MRI TECHNIQUE Bilateral breast MRI was performed on a 1.5 Shefali magnet using a dedicated breast coil with mild compression. Axial T1 and T2 STIR sequences were obtained. Dynamic contrast enhanced VIBRANT fat-suppressed sequences were obtained. Delayed sagittal high resolution or sagittal reconstructed isotropic sequence was also obtained. Subtraction images and maximum intensity projection images were obtained. The study was evaluated using [employer] software. FIBROGLANDULAR TISSUE Bilateral: C. Heterogeneous fibroglandular tissue. BACKGROUND PARENCHYMAL ENHANCEMENT Bilateral: Moderate symmetrical background parenchymal enhancement. BREAST FINDINGS Bilateral: No suspicious mass, suspicious non-mass enhancement, or other concerning finding identified. IMPRESSION: * No evidence of malignancy. RECOMMENDATIONS Bilateral * According to the Tyrer-Cuzick Risk Assessment Model, based on the information provided your patient has a greater than 20% lifetime risk for developing breast cancer. Consider supplemental screening with breast MRI and participation in a high risk screening program. * Annual screening mammography. OVERALL ASSESSMENT CATEGORY BI-RADS-1: Negative. ELECTRONICALLY SIGNED: Asuncion Smiley M.D. on 06/23/2024 at 04:44:24 PM PT Interpreting Station ID: [id number]
--- NOTE | 2024-06-18 09:19 | DI.US.S_ITS ---
PROCEDURE: US PELVIC COMPLETE INDICATIONS: +Brca TECHNIQUE: Real-time scanning was performed of the pelvic organs, with image documentation. Additional endovaginal scanning was necessary due to incomplete visualization of the adnexal and endometrial structures by transabdominal scanning. COMPARISON: [facility], , US PELVIC COMPLETE, 11/28/2023, 22:53. FINDINGS: Uterus: Uterus is anteverted and normal in size at 9.7 x 5.3 x 6.4 cm. The myometrium is heterogeneous. The endometrium measures 12.8 mm combined thickness. Mid anterior intramural fibroid measuring 1.9 x 1.9 x 2.3 cm. Ovaries: The right ovary measures 3.4 x 1.7 x 1.8 cm, with a calculated ovarian volume of 5.4 cc. Resolution of prior right ovarian complex cyst. The left ovary measures 3.6 x 1.4 x 2.9 cm, with a calculated ovarian volume of 7.5 cc. New 1.4 x 2.0 x 1.2 cm complex thick-walled structure within the left ovary. Less than 12 follicles can be seen in each ovary. No adnexal masses are seen. Other: No pathologic free abdominal or pelvic fluid. IMPRESSION: Complex cystic structure within the left ovary measuring up to 2.0 cm. Recommend follow-up ultrasound in 6-12 weeks to assess for resolution. Resolution of prior right ovarian complex cyst. Intramural fibroid measuring 2.3 cm. We strive to produce accurate, complete, and clear reports of imaging services. To assist us in improving patient care, this report was composed using standard report templates and voice recognition software. Therefore, it may contain abnormal punctuation, insertions and/or omissions. Occasional wrong-word or sound-alike substitutions may occur. Though we review the report and make efforts to correct it, we do recommend that the report be read carefully in proper context to recognize any text inaccuracies. Dictated by: Bunny Love M.D. on 06/18/2024 at 10:25 Approved by: Bunny Love M.D. on 06/18/2024 at 10:29
== END ==
LOC: US 09:19
PROVIDERS: PCP Family Medicine; Referring Provider Family Medicine; Visit Provider Family Medicine
DX: R93.5 Abnormal findings on diagnostic imaging of other abdominal regions, including retroperitoneum (principal); D25.1 Intramural leiomyoma of uterus; Z15.01 Genetic susceptibility to malignant neoplasm of breast; Z15.02 Genetic susceptibility to malignant neoplasm of ovary; Z15.09 Genetic susceptibility to other malignant neoplasm; Z80.9 Family history of malignant neoplasm, unspecified; R92.333 Mammographic heterogeneous density, bilateral breasts; Z80.3 Family history of malignant neoplasm of breast
CPT/HCPCS: 76830; 76856; 77049; A9579

== ENCOUNTER → 2024-09-08 15:49 | Outpatient (CLI) | payer OTHER, SELFPAY | PROVIDERS: PCP Family Medicine; Referring Provider Obstetrics & Gynecology; Visit Provider Obstetrics & Gynecology | DX: N83.209 Unspecified ovarian cyst, unspecified side (principal); Z15.01 Genetic susceptibility to malignant neoplasm of breast; Z15.02 Genetic susceptibility to malignant neoplasm of ovary; Z15.09 Genetic susceptibility to other malignant neoplasm | CPT/HCPCS: 36415; 86304; 86305 ==

== ENCOUNTER → 2024-12-27 13:52 | Outpatient (CLI) | payer OTHER, SELFPAY ==
--- NOTE | 2024-12-27 13:54 | DI.MG.S_ITS ---
MM screening mammo BI: 12/27/2024. BI-RADS: 1 CLINICAL: 39-year old female for bilateral screening mammogram. Tyrer-Cuzick lifetime risk of 57.3%. Current reported family history of breast cancer: mother. The patient is a BRCA2 gene mutation carrier. PRIOR EXAMS Breast MRI(s): 06/18/2024. Two Other Exams on 03/13/2023, 06/30/2021. MAMMOGRAPHY TECHNIQUE: 2D and 3D (tomosynthesis) digital mammographic views obtained, with additional images as needed for full coverage. Current study was also evaluated with a Computer Aided Detection (CAD) system. DENSITY C. The breasts are heterogeneously dense, which may obscure small masses. MAMMOGRAPHY FINDINGS Bilateral: No suspicious mass, asymmetry, microcalcification, or other abnormality seen. IMPRESSION: * No evidence of malignancy. RECOMMENDATIONS Bilateral * According to the Tyrer-Cuzick Risk Assessment Model, based on the information provided your patient has a greater than 20% lifetime risk for developing breast cancer. Consider supplemental screening with breast MRI and participation in a high risk screening program. * Annual screening mammography. OVERALL ASSESSMENT CATEGORY BI-RADS-1: Negative. The [employer] recommends annual screening mammography beginning at age 40 for women with average risk of breast cancer. ELECTRONICALLY SIGNED: Joseph Gotti M.D. on 12/29/2024 at 07:51:57 AM PT Interpreting Station ID: [id number]
== END ==
LOC: MAMMO 13:53
PROVIDERS: PCP Family Medicine; Referring Provider Family Medicine; Visit Provider Family Medicine
DX: Z12.31 Encounter for screening mammogram for malignant neoplasm of breast (principal); R92.333 Mammographic heterogeneous density, bilateral breasts; Z80.3 Family history of malignant neoplasm of breast
CPT/HCPCS: 77063; 77067